=== PATIENT | male | born 1930 | race Caucasian/White ===

== ENCOUNTER → 2017-03-13 | Outpatient (CLI) | payer MEDICARE, OTHER ==
[2013-09-18 10:38] VITALS: BMI 27.9
[~2017-03-13] MED LIST: ACET-1966 PO; ASPI-1471 PO; ASPI-757 PO; ATOR20TA65 PO; ATR80PT PO; CALC-707 PO; CEPH500T7 PO; CLOP75TA43 PO; FESO8PT GT; FESO8PT PO; FLU60SYR30 IM ONLY; GABA-490 PO; GABA-549 PO; GLY5 PO; GUAI118L70 PO; ISOS30TA71 PO; LISI-347 PO; LISI-353 PO; LISI-362 PO; LISI20TA29 PO; LOPE-111 PO; LOR5/325 PO; MAG-65; MECL12.5 PO; METO25TA93 PO; METXR500 PO; MOM PO; ONDA4TAB PO; POLY17PO25 PO; SAXA1TBM PO
== END ==
LOC: AMB 13:32
PROVIDERS: ATTEND Nurse Practitioner
DX: R53.83 Other fatigue (principal); R53.81 Other malaise; G30.9 Alzheimer's disease, unspecified
CPT/HCPCS: A0425; A0427

== ENCOUNTER → 2017-05-07 | Outpatient (CLI) | payer MEDICARE, OTHER ==
[2013-09-18 10:38] VITALS: BMI 27.9
[~2017-05-07] MED LIST changes: +ATOR10TA65 PO; +SERT25TA90 PO
== END ==
LOC: ZZSPRING 01:41
PROVIDERS: ATTEND Family Medicine
DX: E55.9 Vitamin D deficiency, unspecified (principal); N28.9 Disorder of kidney and ureter, unspecified; E78.5 Hyperlipidemia, unspecified; E11.9 Type 2 diabetes mellitus without complications; F03.90 Unspecified dementia, unspecified severity, without behavioral disturbance, psychotic disturbance, mood disturbance, and anxiety
CPT/HCPCS: 36415; 82306; 82310; 82374; 82435; 82465; 82565; 82947; 83036; 83718; 84132; 84295; 84478; 84520

== ENCOUNTER 2017-06-06 12:33 | Observation (INO) | payer MEDICARE, OTHER ==
[2013-09-18 10:38] VITALS: Wt 80.7 kg
[~2017-06-06 12:33] MED LIST changes: -ACET500T68 PO; -DEXT1DRO15 OP; -LOPE-109 PO; -OSEL30CA PO
--- NOTE | 2017-06-06 13:17 | ER Report ---
History and Physical Time Seen By MD: 12:41 Hx. of Stated Complaint: nausea, vomiting at the grocery store HPI/ROS CHIEF COMPLAINT: Nausea, vomiting HISTORY OF PRESENT ILLNESS: 87-year-old patient presents to emergency room with complaint of nausea and vomiting. Patient states that he woke up this morning feeling well. He states that a friend took him to safely. While he was there he became sick to stomach and vomited. EMS was called and they came and got him and brought him to the emergency room. Patient states that he would like to go home. He states that he has no weakness. He states that he is feeling better since he vomited. Patient has not taken any medication for this. He denies having any chest pain or shortness of breath. REVIEW OF SYSTEMS: Respiratory: No cough, no dyspnea. Cardiovascular: No chest pain, no palpitations. Gastrointestinal: As noted above Musculoskeletal: No back pain. Allergies: Coded Allergies: strawberry (Verified Allergy, Mild, 06/06/17) Home Meds Active Scripts Sertraline Hcl (SERTRALINE HCL) 25 Mg Tablet, 1 TAB PO QDAY for 90 Days, #90 TAB 1 Refill Prov:HAROLDO DELUNA MD 06/05/17 Cholecalciferol (Vitamin D3) (VITAMIN D3) 1,000 Unit Tablet, 1 TAB PO DAILY for 90 Days, #90 TAB 4 Refills Prov:HAROLDO DELUNA MD 05/13/17 Atorvastatin Calcium (ATORVASTATIN CALCIUM) 10 Mg Tablet, 1 TAB PO QDAY for 90 Days, #90 TAB 4 Refills Prov:HAROLDO DELUNA MD 04/30/17 Lisinopril (LISINOPRIL) 10 Mg Tablet, 1 TAB PO QDAY for 30 Days, #30 TAB 4 Refills Prov:HAROLDO DELUNA MD 04/26/17 Isosorbide Dinitrate (ISOSORBIDE DINITRATE) 30 Mg Tablet, 1 TAB PO QDAY, #90 TAB 4 Refills Prov:SCOOBY LEAVITT APRN [employer] INSPECTOR-C 03/22/17 Metoprolol Tartrate (METOPROLOL TARTRATE) 25 Mg Tablet, 12.5 MG PO BID, #90 TAB 4 Refills Prov:SHERON EDDY MD 02/25/17 Clopidogrel Bisulfate (PLAVIX) 75 Mg Tablet, 1 TAB PO QDAY, #90 TAB 4 Refills Prov:SHERON EDDY MD 01/11/17 Reported Medications Acetaminophen (TYLENOL EXTRA STRENGTH) 500 Mg Tablet, 500 MG PO, TAB Take 2 tabs by mouith up to 4 times per day as needed for Dental pain. Do not exceed 4000 mg per day 06/06/17 Ondansetron (ZOFRAN ODT) 4 Mg Tab.rapdis, 4 MG PO tid prn, TAB.ZHOU 03/13/17 Aspirin (ASPIR 81) 81 Mg Tablet.dr, 1 TAB PO QDAY, TAB 03/08/17 Guaifenesin/Dextromethorphan (Robafen Dm Cgh-Chest Bossman Liq) 100 Mg-10 Mg/5 Ml Liquid, 5 ML PO Q4-6H Y for COUGH Not to exceed 4 doses in 24 hours 10/03/16 Polyethylene Glycol 3350 (MIRALAX) Unknown Strength Powd.pack, 17 GM PO QDAY, PKT 10/03/16 Mag Hydrox/Aluminum Hyd/Simeth (Maalox Advanced Suspension) Unknown Strength Oral.susp 10/03/16 Loperamide Hcl (LOPERAMIDE) 2 Mg Tablet, 2-4 MG PO PRN 2 tabs PO with first loose stool and additional tab with additional loose stool, not to exceed 8 doses in 24 hours 10/03/16 Aspirin (ASPIRIN) 325 Mg Tablet, 325 MG PO QDAY Y for chest pain, TAB 10/03/16 Calcium Carbonate (ANTACID) 300 Mg Tab.chew, 300 MG PO Q2H Y for HEARTBURN, TAB.CHEW 10/03/16 Acetaminophen (TYLENOL) 325 Mg Tablet, 1-2 TAB PO Q4H Y for FEVER/PAIN, TAB 10/03/16 Discontinued Reported Medications Dextran 70/Hypromellose (ARTIFICIAL TEARS) 1 Each Droperette, 1 EACH OP 06/06/17 Loperamide Hcl (ANTI-DIARRHEAL) 2 Mg Tablet, 2 MG PO 06/06/17 Past Medical/Surgical History Patient has a past medical history of neuropathy, AR, hypertension, diabetes, alcohol use, depression, cancer. Patient has a surgical history of appendectomy, prostatectomy. Reviewed Nurses Notes: Yes Hx Smoking: Yes Smoking Status: Never Smoker Exposure to Second Hand Smoke?: No Hx Substance Use Disorder: No Hx Alcohol Use: Yes ([employer]) Constitutional Vital Sign - Last 24 Hours 06/06/17 06/06/17 06/06/17 06/06/17 12:33 12:35 12:48 13:03 Temp 97.1 Pulse 77 78 80 78 Resp 14 20 24 B/P (MAP) 125/61 (82) 125/61 Pulse Ox 95 95 96 O2 Delivery Room Air 06/06/17 06/06/17 06/06/17 06/06/17 13:18 13:33 13:48 14:03 Pulse ??? 71 66 69 Resp 19 10 22 Pulse Ox 92 91 92 06/06/17 06/06/17 06/06/17 06/06/17 14:18 14:30 14:35 14:50 Pulse 73 69 69 70 Resp 10 23 20 7 Pulse Ox 92 93 93 93 06/06/17 06/06/17 06/06/17 06/06/17 14:59 15:19 15:34 15:57 Pulse 63 71 71 Resp 22 14 19 B/P (MAP) 154/121 (132) Pulse Ox 92 94 95 06/06/17 06/06/17 06/06/17 06/06/17 16:00 16:04 16:24 16:30 Pulse 70 72 Resp 16 25 B/P (MAP) 153/77 (102) 127/71 (89) Pulse Ox 91 95 06/06/17 16:39 Pulse 69 Resp 22 Pulse Ox 96 Physical Exam General Appearance: The patient is alert, has no immediate need for airway protection and no current signs of toxicity. ENT: Tympanic membranes are pearly-carter, auditory canals are patent, mucous membranes are moist. Respiratory: Chest is non tender, lungs are clear to auscultation. Cardiac: regular rate and rhythm Gastrointestinal: Abdomen is soft and non tender, no masses, bowel sounds normal. Musculoskeletal: Neck: Neck is supple and non tender. Extremities have full range of motion and are non tender. Skin: No rashes or lesions. Neuro: Patient is alert and oriented 3, he is able to follow instructions. Cranial nerves II through XII grossly intact, patient has good strength with both hands. DIFFERENTIAL DIAGNOSIS: After history and physical exam differential diagnosis was considered for gastroenteritis, pneumonia, urinary tract infection, stroke. Medical Decision Making Data Points Result Diagram: 06/06/17 1414 06/06/17 1414 Laboratory Hematology Test 06/06/17 00:00 06/06/17 13:02 06/06/17 14:14 Urine Color Yellow Urine Clarity Slightly-cloudy Urine pH 5.0 pH (4.8-9.5) Urine Specific [place] 1.025 Urine Protein Negative mg/dL (NEGATIVE) Urine Glucose (UA) Negative mg/dL (NEGATIVE) Urine Ketones Negative mg/dL (NEGATIVE) Urine Blood Negative (NEGATIVE) Urine Nitrite Negative (NEGATIVE) Urine Bilirubin Negative (NEGATIVE) Urine Urobilinogen 4.0 mg/dL (0.2-1.9) Urine Leukocyte Esterase Small (NEGATIVE) Urine RBC 1 /HPF (0-2/HPF) Urine WBC 14 /HPF (0-5/HPF) Urine Squamous Epithelial Cells Many /LPF (</=FEW) Urine Bacteria Few /HPF (NONE-FEW) Urine Hyaline Casts Few /LPF (NONE-FEW) Urine Mucus Few /HPF (NONE-FEW) Influenza Virus Type A (PCR) Negative (NEGATIVE) Influenza Virus Type B (PCR) Positive (NEGATIVE) Red Blood Count 5.04 M/uL (4.00-5.60) Mean Corpuscular Volume 89.0 fL (80.0-96.0) Mean Corpuscular Hemoglobin 29.9 pg (26.0-33.0) Mean Corpuscular Hemoglobin Concent 33.6 g/dL (32.0-36.0) Red Cell Distribution Width 14.4 % (11.5-14.5) Mean Platelet Volume 9.0 fL (7.2-11.1) Neutrophils (%) (Auto) 85.9 % (39.4-72.5) Lymphocytes (%) (Auto) 6.8 % (17.6-49.6) Monocytes (%) (Auto) 6.4 % (4.1-12.4) Eosinophils (%) (Auto) 0.5 % (0.4-6.7) Basophils (%) (Auto) 0.4 % (0.3-1.4) Nucleated RBC Relative Count (auto) 0.0 /100WBC Neutrophils # (Auto) 9.3 K/uL (2.0-7.4) Lymphocytes # (Auto) 0.7 K/uL (1.3-3.6) Monocytes # (Auto) 0.7 K/uL (0.3-1.0) Eosinophils # (Auto) 0.1 K/uL (0.0-0.5) Basophils # (Auto) 0.0 K/uL (0.0-0.1) Nucleated RBC Absolute Count (auto) 0.00 K/uL Sodium Level 143 mmol/L (137-145) Potassium Level 5.2 mmol/L (3.5-5.0) Chloride Level 109 mmol/L (98-107) Carbon Dioxide Level 23 mmol/L (22-30) Blood Urea Nitrogen 27 mg/dl (9-21) Creatinine 1.40 mg/dl (0.66-1.25) Glomerular Filtration Rate Calc 47.8 Random Glucose 125 mg/dl (75-110) Calcium Level 8.7 mg/dl (8.4-10.2) Total Bilirubin 1.2 mg/dl (0.2-1.3) Aspartate Amino Transf (AST/SGOT) 26 U/L (0-35) Alanine Aminotransferase (ALT/SGPT) 32 U/L (0-56) Alkaline Phosphatase 118 U/L (0-126) Troponin I < 0.012 ng/ml Total Protein 6.4 gm/dl (6.3-8.2) Albumin 3.5 g/dl (3.5-5.0) Chemistry Test 06/06/17 00:00 06/06/17 13:02 06/06/17 14:14 Urine Color Yellow Urine Clarity Slightly-cloudy Urine pH 5.0 pH (4.8-9.5) Urine Specific [place] 1.025 Urine Protein Negative mg/dL (NEGATIVE) Urine Glucose (UA) Negative mg/dL (NEGATIVE) Urine Ketones Negative mg/dL (NEGATIVE) Urine Blood Negative (NEGATIVE) Urine Nitrite Negative (NEGATIVE) Urine Bilirubin Negative (NEGATIVE) Urine Urobilinogen 4.0 mg/dL (0.2-1.9) Urine Leukocyte Esterase Small (NEGATIVE) Urine RBC 1 /HPF (0-2/HPF) Urine WBC 14 /HPF (0-5/HPF) Urine Squamous Epithelial Cells Many /LPF (</=FEW) Urine Bacteria Few /HPF (NONE-FEW) Urine Hyaline Casts Few /LPF (NONE-FEW) Urine Mucus Few /HPF (NONE-FEW) Influenza Virus Type A (PCR) Negative (NEGATIVE) Influenza Virus Type B (PCR) Positive (NEGATIVE) White Blood Count 10.8 k/uL (4.5-11.0) Red Blood Count 5.04 M/uL (4.00-5.60) Hemoglobin 15.1 g/dL (14.0-18.0) Hematocrit 44.9 % (42.0-52.0) Mean Corpuscular Volume 89.0 fL (80.0-96.0) Mean Corpuscular Hemoglobin 29.9 pg (26.0-33.0) Mean Corpuscular Hemoglobin Concent 33.6 g/dL (32.0-36.0) Red Cell Distribution Width 14.4 % (11.5-14.5) Platelet Count 156 K/uL (150-450) Mean Platelet Volume 9.0 fL (7.2-11.1) Neutrophils (%) (Auto) 85.9 % (39.4-72.5) Lymphocytes (%) (Auto) 6.8 % (17.6-49.6) Monocytes (%) (Auto) 6.4 % (4.1-12.4) Eosinophils (%) (Auto) 0.5 % (0.4-6.7) Basophils (%) (Auto) 0.4 % (0.3-1.4) Nucleated RBC Relative Count (auto) 0.0 /100WBC Neutrophils # (Auto) 9.3 K/uL (2.0-7.4) Lymphocytes # (Auto) 0.7 K/uL (1.3-3.6) Monocytes # (Auto) 0.7 K/uL (0.3-1.0) Eosinophils # (Auto) 0.1 K/uL (0.0-0.5) Basophils # (Auto) 0.0 K/uL (0.0-0.1) Nucleated RBC Absolute Count (auto) 0.00 K/uL Glomerular Filtration Rate Calc 47.8 Calcium Level 8.7 mg/dl (8.4-10.2) Total Bilirubin 1.2 mg/dl (0.2-1.3) Aspartate Amino Transf (AST/SGOT) 26 U/L (0-35) Alanine Aminotransferase (ALT/SGPT) 32 U/L (0-56) Alkaline Phosphatase 118 U/L (0-126) Troponin I < 0.012 ng/ml Total Protein 6.4 gm/dl (6.3-8.2) Albumin 3.5 g/dl (3.5-5.0) Urinalysis Test 06/06/17 00:00 Urine Color Yellow Urine Clarity Slightly-cloudy Urine pH 5.0 pH (4.8-9.5) Urine Specific [place] 1.025 Urine Protein Negative mg/dL (NEGATIVE) Urine Glucose (UA) Negative mg/dL (NEGATIVE) Urine Ketones Negative mg/dL (NEGATIVE) Urine Blood Negative (NEGATIVE) Urine Nitrite Negative (NEGATIVE) Urine Bilirubin Negative (NEGATIVE) Urine Urobilinogen 4.0 mg/dL (0.2-1.9) Urine Leukocyte Esterase Small (NEGATIVE) Urine RBC 1 /HPF (0-2/HPF) Urine WBC 14 /HPF (0-5/HPF) Urine Squamous Epithelial Cells Many /LPF (</=FEW) Urine Bacteria Few /HPF (NONE-FEW) Urine Hyaline Casts Few /LPF (NONE-FEW) Urine Mucus Few /HPF (NONE-FEW) EKG/Imaging EKG Interpretation 12 lead EKG: Rhythm: normal sinus rhythm [place]: Left axis deviation QRS: normal ST segments: normal Imaging Exam type: CHEST PA AND LAT History: Nausea vomiting and unsteadiness Comparison: September 17, 2013. Findings: There is no evidence of acute effusions, infiltrates or edema. The cardiac silhouette is normal in size. There moderate spondylotic changes of the thoracic spine and moderate degenerative changes at the left shoulder joint IMPRESSION: 1. No acute cardiopulmonary process is seen Report Dictated By: Cindy Rich MD at 06/06/2017 1:33 PM Report E-Signed By: Cindy Rich MD at 06/06/2017 1:34 PM ED Course/Re-evaluation ED Course Patient was admitted to exam room, history and physical were obtained. Differential diagnoses were considered. On examination lungs are clear, heart was regular. Patient asked initial interview if he was able to home. Due to his age and illness I want to do a thorough workup as well as her family was okay then patient could be discharged home at that time. Patient agreed to that. A CBC, CMP, EKG, troponin, chest x-ray, CT scan of the head was done. The CBC and CMP were unremarkable, troponin was negative, EKG showed a normal sinus rhythm. CT scan of the head showed age-related changes. Influenza screen was done which was positive for influenza B. I discussed findings with the patient. I asked him how he felt about going home. Patient stated he would prefer to be admitted and stay here in the hospital. I discussed the case with Dr. Hooks, hospitalist. He did come down into the emergency room and evaluated the patient. He did agree to accept the patient for admission with diagnosis of influenza B. Decision to Disposition Date: Jun 06, 2017 Decision to Disposition Time: 16:56 Depart Departure Latest Vital Signs Vital Signs Date Time Temp Pulse Resp B/P (MAP) Pulse Ox O2 Delivery O2 Flow Rate FiO2 06/06/17 16:39 69 22 96 06/06/17 16:30 127/71 (89) 06/06/17 12:35 97.1 Room Air Impression: Primary Impression: Influenza B Condition: Condition Unchanged Disposition: Admitted from ER Referrals: HAROLDO DELUNA MD (PCP) LILI ORTEGA Jun 06, 2017 13:17
--- NOTE | 2017-06-06 13:39 | RADIOLOGY IMAGING REPORT ---
FACILITY: [facility] - [place] PATIENT NAME: Duy Woo : 1930 MR: [id number] V: [id number] EXAM DATE: [id number] ORDERING PHYSICIAN: LILI ORTEGA TECHNOLOGIST: Location: [facility] Patient: Duy Woo : 1930 Visit/Account:[id number] Date of Sevice: 06/06/2017 Exam type: CHEST PA AND LAT History: Nausea vomiting and unsteadiness Comparison: September 17, 2013. Findings: There is no evidence of acute effusions, infiltrates or edema. The cardiac silhouette is normal in s ize. There moderate spondylotic changes of the thoracic spine and moderate degenerative changes at t he left shoulder joint IMPRESSION: 1. No acute cardiopulmonary process is seen Report Dictated By: Cindy Rich MD at 06/06/2017 1:33 PM Report E-Signed By: Cindy Rich MD at 06/06/2017 1:34 PM WSN:[email or web address]
--- NOTE | 2017-06-06 14:01 | EKG ---
FACILITY: [facility] - [place] PATIENT NAME: MYLENE ALLEN : [id number] MR: [id number] V: [id number] EXAM DATE: ORDERING PHYSICIAN: LILI ORTEGA TECHNOLOGIST: FRANCE Prakash Reason : SICK TO STOMACH Blood Pressure : / mmHG Vent. Rate : 076 BPM Atrial Rate : 076 BPM P-R Int : 178 ms QRS Dur : 114 ms QT Int : 432 ms P-R-T Axes : 030 -30 046 degrees QTc Int : 486 ms Normal sinus rhythm Left axis deviation Minimal voltage criteria for LVH, may be normal variant Prolonged QT Poor R wave progression consistent with an old ant/sep [place] vs lead placement When compared with ECG of 13-MAR-2017 14:09, No significant change was found Confirmed by FROYLAN GALICIA ([id number]) on 06/06/2017 5:57:08 PM Referred By: LILI Confirmed By:FROYLAN GALICIA
--- NOTE | 2017-06-06 14:03 | RADIOLOGY IMAGING REPORT ---
FACILITY: [facility] PATIENT NAME: Duy Woo : 1930 MR: [id number] V: [id number] EXAM DATE: [id number] ORDERING PHYSICIAN: LILI ORTEGA TECHNOLOGIST: Location: [facility] [place] Patient: Duy Woo : 1930 Visit/Account:[id number] Date of Sevice: 06/06/2017 EXAMINATION: Head CT without intravenous contrast HISTORY: Confusion TECHNIQUE: Contiguous axial images were obtained from the skull base to the vertex without intraven ous contrast. Sagittal and coronal reformatted images are also submitted. Dose Lowering Technique One of the following dose optimization techniques was utilized in the performance of this exam: Autom ated exposure control; adjustment of the mA and/or kV according to the patient's size; or use of an i terative reconstruction technique. Specific details can be referenced in the facility's radiology C T exam operational policy. COMPARISON: March 13, 2017 FINDINGS: Brain volume: There is moderate diffuse central cortical atrophy present although not out of proport ion for patient's stated age Ventricles: As above Acute ischemic changes: None. Hemorrhage: None. Masses / edema: None. Julio-white: Negative. White matter: Patchy hypodensities in the periventricular white matter bilaterally Vessels: Vascular calcifications in the vertebral arteries and carotid siphons Extra-axial: Negative. Calvarium / scalp: Negative. Skull base / visualized face: Negative. Visualized sinuses / orbits: Mild mucosal thickening in the right maxillary sinus IMPRESSION: Moderate nonspecific white matter disease suspicious for chronic small vessel ischemia. If an acute infarct is of strong clinical concern MRI may be helpful Vascular calcifications in the vertebral arteries and carotid siphons Mild mucosal thickening in the right maxillary sinus Report Dictated By: Cindy Rich MD at 06/06/2017 1:54 PM Report E-Signed By: Cindy Rich MD at 06/06/2017 1:59 PM WSN:[email or web address]
[2017-06-06 14:28] LABS: PLATELET COUNT, AUTOMATED 156 K/uL (150-450)
[2017-06-06] MEDS ORDERED: ONDANSETRON 4 MG/2 ML VIAL ONE (15:42)
[2017-06-06] MEDS ORDERED: OSELTAMIVIR PHOS 30 MG CAP PO ONE (17:35)
[2017-06-06] MEDS ORDERED: ONDANSETRON 4 MG/2 ML VIAL IVP PRN ×2 (17:35→17:45)
[2017-06-06] MEDS ORDERED: PROMETHAZINE 25 MG/ML 1 ML AMP IVP PRN (17:45)
[2017-06-06 17:57] VITALS: BP 157/90
[2017-06-06] MEDS: NS(*) 0.9% 1000 ML BAG 1,000 ML IV PRN (18:03)
--- NOTE | 2017-06-06 18:10 | History & Physical ---
History of Present Illness History of Present Illness 87yo male with a h/o CAD who came to the ER for vomiting and weakness. He was in his normal state of health yesterday. This morning he felt a bit weak. He went to the store with a friend. He vomited there and felt very weak. EMS brought him to the ER. He denies any fevers, diarrhea. He doesn't report SOB or CP. His friend who is with him denies any changes in the patient's baseline mental status. In the ER, he received Zofran after a vomiting event. History Problems: (1) CAD (coronary artery disease) Status: Chronic (2) HTN (hypertension) Status: Chronic (3) Depression Status: Chronic Home Meds Active Scripts Sertraline Hcl (SERTRALINE HCL) 25 Mg Tablet, 1 TAB PO QDAY for 90 Days, #90 TAB 1 Refill Prov:HAROLDO DELUNA MD 06/05/17 Cholecalciferol (Vitamin D3) (VITAMIN D3) 1,000 Unit Tablet, 1 TAB PO DAILY for 90 Days, #90 TAB 4 Refills Prov:HAROLDO DELUNA MD 05/13/17 Atorvastatin Calcium (ATORVASTATIN CALCIUM) 10 Mg Tablet, 1 TAB PO QDAY for 90 Days, #90 TAB 4 Refills Prov:HAROLDO DELUNA MD 04/30/17 Lisinopril (LISINOPRIL) 10 Mg Tablet, 1 TAB PO QDAY for 30 Days, #30 TAB 4 Refills Prov:HAROLDO DELUNA MD 04/26/17 Isosorbide Dinitrate (ISOSORBIDE DINITRATE) 30 Mg Tablet, 1 TAB PO QDAY, #90 TAB 4 Refills Prov:SCOOBY LEAVITT APRN [employer]-C 03/22/17 Metoprolol Tartrate (METOPROLOL TARTRATE) 25 Mg Tablet, 12.5 MG PO BID, #90 TAB 4 Refills Prov:SHERON EDDY MD 02/25/17 Clopidogrel Bisulfate (PLAVIX) 75 Mg Tablet, 1 TAB PO QDAY, #90 TAB 4 Refills Prov:SHERON EDDY MD 01/11/17 Reported Medications Ondansetron (ZOFRAN ODT) 4 Mg Tab.rapdis, 4 MG PO tid prn, TAB.ZHOU 03/13/17 Aspirin (ASPIR 81) 81 Mg Tablet.dr, 1 TAB PO QDAY, TAB 03/08/17 Guaifenesin/Dextromethorphan (Robafen Dm Cgh-Chest Bossman Liq) 100 Mg-10 Mg/5 Ml Liquid, 5 ML PO Q4-6H Y for COUGH Not to exceed 4 doses in 24 hours 10/03/16 Polyethylene Glycol 3350 (MIRALAX) Unknown Strength Powd.pack, PO QDAY, PKT 10/03/16 Mag Hydrox/Aluminum Hyd/Simeth (Maalox Advanced Suspension) Unknown Strength Oral.susp 10/03/16 Loperamide Hcl (LOPERAMIDE) 2 Mg Tablet, 2-4 MG PO PRN 2 tabs PO with first loose stool and additional tab with additional loose stool, not to exceed 8 doses in 24 hours 10/03/16 Aspirin (ASPIRIN) 325 Mg Tablet, 325 MG PO QDAY Y for chest pain, TAB 10/03/16 Calcium Carbonate (ANTACID) 300 Mg Tab.chew, 300 MG PO Q2H Y for HEARTBURN, TAB.CHEW 10/03/16 Acetaminophen (TYLENOL) 325 Mg Tablet, 1-2 TAB PO Q4H Y for FEVER/PAIN, TAB 10/03/16 Allergies: Coded Allergies: strawberry (Verified Allergy, Mild, 06/06/17) Hx Smoking: Yes Smoking Status: Never Smoker Exposure to Second Hand Smoke?: No Caffeine Intake: Coffee, Tea Caffeine/Cups Per Day: 4-5 Hx Alcohol Use: Yes ([employer]) Hx Substance Use Disorder: No Review of Systems All Systems Reviewed/Normal: Yes, Except as Noted Exam Vital Signs Vital Signs Date Time Temp Pulse Resp B/P (MAP) Pulse Ox O2 Delivery O2 Flow Rate FiO2 06/06/17 17:09 70 20 96 06/06/17 17:00 126/68 (87) 06/06/17 12:35 97.1 Room Air General Appearance: Alert, Awake, No Acute Distress (pale and tired appearing) Neuro: No Gross deficits (Knows where he is and the events of the day. Equal strength bilaterally in UE and LE) Eyes: PERRLA ENT: Moist Mucous Membranes Cardiovascular: Regular Rate and Rhythm Respiratory: Clear to Auscultation GI: Abd Soft and Non-Tender Extremities: No Edema Integumentary: No Jaundice, No Cyanosis Medical Decision Making Data Points Result Diagram: 06/06/17 1414 06/06/17 1414 Item Value Date Time Creatinine 1.20 mg/dl 02/05/17 0810 Creatinine 1.60 mg/dl H 03/13/17 1400 Creatinine 1.20 mg/dl 05/07/17 0830 Creatinine 1.40 mg/dl H 06/06/17 1414 Potassium Level 5.2 mmol/L H 06/06/17 1414 Total Bilirubin 1.2 mg/dl 06/06/17 1414 Aspartate Amino Transf (AST/SGOT) 26 U/L 06/06/17 1414 Alanine Aminotransferase (ALT/SGPT) 32 U/L 06/06/17 1414 Alkaline Phosphatase 118 U/L 06/06/17 1414 Troponin I < 0.012 ng/ml 06/06/17 1414 Neutrophils (%) (Auto) 85.9 % H 06/06/17 1414 Urine RBC 1 /HPF 06/06/17 0000 Urine WBC 14 /HPF 06/06/17 0000 Urine Squamous Epithelial Cells Many /LPF H 06/06/17 0000 Urine Bacteria Few /HPF 06/06/17 0000 Urine Hyaline Casts Few /LPF 06/06/17 0000 Urine Mucus Few /HPF 06/06/17 0000 Influenza Virus Type A (PCR) Negative 06/06/17 1302 Influenza Virus Type B (PCR) Positive 06/06/17 1302 EKG / Imaging EKG Interpretation Vent. Rate : 076 BPM Atrial Rate : 076 BPM P-R Int : 178 ms QRS Dur : 114 ms QT Int : 432 ms P-R-T Axes : 030 -30 046 degrees QTc Int : 486 ms Normal sinus rhythm Left axis deviation Minimal voltage criteria for LVH, may be normal variant Prolonged QT Poor R wave progression consistent with an old ant/sep [place] vs lead placement When compared with ECG of 13-MAR-2017 14:09, No significant change was found Confirmed by FROYLAN GALICIA ([id number]) on 06/06/2017 5:57:08 PM Imaging CXR - 1. No acute cardiopulmonary process is seen Head CT - Moderate nonspecific white matter disease suspicious for chronic small vessel ischemia. If an acute infarct is of strong clinical concern MRI may be helpful Vascular calcifications in the vertebral arteries and carotid siphons Mild mucosal thickening in the right maxillary sinus Assessment and Plan Problems: (1) Vomiting Status: Acute Assessment & Plan: Secondary to Influenza. Will hydrate and treat with Phenergan as needed. QT too prolonged for Zofran. (2) Influenza B Status: Acute Assessment & Plan: Will treat with renal dosed Tamiflu and place in isolation. (3) CAD (coronary artery disease) Status: Chronic Assessment & Plan: Continue ASA, Plavix, metoprolol, Isosorbide and Lipitor as tolerated. (4) Depression Status: Chronic Assessment & Plan: Continue sertraline. (5) HTN (hypertension) Status: Chronic Assessment & Plan: Continue metoprolol, but will hold lisinopril because of the mild hyperkalemia. Copies to: HAROLDO DELUNA MD Venous Thromboembolism Antithrombotics Is Pt On Any Antithrombotics?: No Exam Sepsis Risk: No Definite Risk FROYLAN GALICIA MD Jun 06, 2017 18:10
[2017-06-06] MEDS ORDERED: DEXT1DRO15 OP (18:26)
[2017-06-06] MEDS ORDERED: LOPE-109 PO (18:26)
[2017-06-06] MEDS ORDERED: ACET500T68 PO (18:26)
[2017-06-06 19:57] VITALS: BP 159/63
[2017-06-06] MEDS ORDERED: EMS NS 0.9%(*) 1000 ML BAG 1,000 ML IV ONE (20:30)
[2017-06-06] MEDS: METOPROLOL TART 50 MG TAB PO SCH (21:32)
[2017-06-06] MEDS: ATORVASTATIN 10 MG TAB PO SCH (21:36)
[2017-06-07 01:23] VITALS: BP 140/80
[2017-06-07] MEDS: NS(*) 0.9% 1000 ML BAG 1,000 ML IV PRN (04:15)
[2017-06-07 05:56] LABS: PLATELET COUNT, AUTOMATED 123 K/uL (150-450)
[2017-06-07 08:04] VITALS: BP 153/73
[2017-06-07] MEDS: ENOXAPARIN 30 MG/0.3 ML SYR SC SCH (08:15)
[2017-06-07] MEDS: ASPIRIN 81 MG ENTERIC COATED PO SCH (08:15)
[2017-06-07] MEDS: METOPROLOL TART 50 MG TAB PO SCH ×2 (08:15→20:48)
[2017-06-07] MEDS: ISOSORBIDE MONONITR 30MG TABCR PO SCH (08:15)
[2017-06-07] MEDS: CLOPIDOGREL BISULFATE 75MG TAB PO SCH (08:15)
[2017-06-07] MEDS: OSELTAMIVIR PHOS 30 MG CAP PO SCH ×2 (08:15→20:48)
[2017-06-07] MEDS ORDERED: NS(*) 0.9% 1000 ML BAG 1,000 ML IV PRN (10:04)
[2017-06-07] MEDS: cefTRIAXone 1 GM VIAL IVP SCH (11:13)
--- NOTE | 2017-06-07 14:57 | Hospitalist Progress Note ---
Subjective Progress Notes Subjective He reports some minor improvements, but still feels rather poorly. Physical Exam Vital Signs Date Time Temp Pulse Resp B/P (MAP) Pulse Ox O2 Delivery O2 Flow Rate FiO2 06/07/17 08:09 96 Nasal Cannula 2.0 06/07/17 08:04 98.4 75 16 153/73 (99) Intake and Output 06/08/17 07:00 Intake Total 240 ml Balance 240 ml Intake Oral 240 ml # Voids 1 # Bowel Movements 2 Cardiovascular: Regular Rate and Rhythm Respiratory: Clear to Auscultation GI: Other (soft, but with some suprapubic discomfort with palpation) Extremities: Warm, Perfused Result Diagram: 06/07/17 0506/07/17 0525 Assessment and Plan Problems: (1) UTI (urinary tract infection) Status: Acute Assessment & Plan: Will place on IV Rocephin. 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 Urine culture pending. (2) Influenza B Status: Acute Assessment & Plan: He is on renal dosed Tamiflu, IV fluids. He has been placed in isolation. Watch closely. (3) Vomiting Status: Acute Assessment & Plan: Possibly due to Influenza, but also could be related to UTI. Will continue IV fluids and treat with Phenergan as needed. (4) CAD (coronary artery disease) Status: Chronic Assessment & Plan: Continue ASA, Plavix, metoprolol, Isosorbide and Lipitor as tolerated. (5) Depression Status: Chronic Assessment & Plan: Continue sertraline. (6) HTN (hypertension) Status: Chronic Assessment & Plan: Continue metoprolol, but will hold lisinopril because of the mild hyperkalemia. Exam Sepsis Risk: No Definite Risk BENI YARBROUGH MD Jun 07, 2017 14:57
[2017-06-07 15:06] VITALS: BP 149/81
[2017-06-07 19:44] VITALS: BP 150/70
[2017-06-07] MEDS: ATORVASTATIN 10 MG TAB PO SCH (20:48)
[2017-06-08 06:33] LABS: PLATELET COUNT, AUTOMATED 112 K/uL (150-450)
[2017-06-08 07:25] VITALS: BP 160/74
[2017-06-08] MEDS ORDERED: LOPERAMIDE HCL 2 MG CAP PO PRN (09:10)
[2017-06-08] MEDS: METOPROLOL TART 50 MG TAB PO SCH ×2 (09:11→21:49)
[2017-06-08] MEDS: OSELTAMIVIR PHOS 30 MG CAP PO SCH ×2 (09:11→21:49)
[2017-06-08] MEDS: CLOPIDOGREL BISULFATE 75MG TAB PO SCH (09:11)
[2017-06-08] MEDS: ENOXAPARIN 30 MG/0.3 ML SYR SC SCH (09:12)
[2017-06-08] MEDS: ASPIRIN 81 MG ENTERIC COATED PO SCH (09:12)
[2017-06-08] MEDS: ISOSORBIDE MONONITR 30MG TABCR PO SCH (09:12)
[2017-06-08 11:18] VITALS: BP 118/56
[2017-06-08] MEDS: cefTRIAXone 1 GM VIAL IVP SCH (11:27)
--- NOTE | 2017-06-08 13:39 | Hospitalist Progress Note ---
Subjective Progress Notes Subjective He is without complaints. Staff is concerns about his strength and some loose stools. Physical Exam Vital Signs Date Time Temp Pulse Resp B/P (MAP) Pulse Ox O2 Delivery O2 Flow Rate FiO2 06/08/17 11:33 95 Nasal Cannula 1.0 06/08/17 11:18 97.7 62 20 118/56 (76) Intake and Output 06/09/17 07:00 Intake Total 200 ml Balance 200 ml Intake Oral 200 ml # Voids 2 # Bowel Movements 1 General Appearance: Alert, Awake, No Acute Distress GI: Soft and Non-Tender Result Diagram: 06/08/1760006/08/17600 Assessment and Plan Problems: (1) Influenza B Status: Acute Assessment & Plan: He is on renal dosed Tamiflu. He has been placed in isolation. Watch closely. (2) UTI (urinary tract infection) Status: Acute Assessment & Plan: On IV Rocephin. Growing Citrobacter Koseri as with infections in the past. (3) Vomiting Status: Resolved Assessment & Plan: Possibly due to Influenza, but also could be related to UTI. Saline lock. Follow symptoms. He is a bit weak so will ask therapy to evaluate. (4) CAD (coronary artery disease) Status: Chronic Assessment & Plan: Continue ASA, Plavix, metoprolol, Isosorbide and Lipitor as tolerated. (5) Depression Status: Chronic Assessment & Plan: Continue sertraline. (6) HTN (hypertension) Status: Chronic Assessment & Plan: Continue metoprolol, but will hold lisinopril because of the mild hyperkalemia and elevated creatinine Exam Sepsis Risk: No Definite Risk FROYLAN GALICIA MD Jun 08, 2017 13:39
[2017-06-08 16:31] VITALS: BP 156/81
[2017-06-08 19:12] VITALS: BP 127/74
[2017-06-08 21:47] VITALS: BP 146/73
[2017-06-08] MEDS: ATORVASTATIN 10 MG TAB PO SCH (21:49)
[2017-06-09 05:29] VITALS: BP 136/75
[2017-06-09 08:12] VITALS: BP 158/86
[2017-06-09] MEDS ORDERED: INFLUENZA VIRUS VAC 0.5 ML SYR IM ONLY ONE (09:00)
[2017-06-09] MEDS: METOPROLOL TART 50 MG TAB PO SCH (09:59)
[2017-06-09] MEDS: ISOSORBIDE MONONITR 30MG TABCR PO SCH (09:59)
[2017-06-09] MEDS: ASPIRIN 81 MG ENTERIC COATED PO SCH (09:59)
[2017-06-09] MEDS: CLOPIDOGREL BISULFATE 75MG TAB PO SCH (09:59)
[2017-06-09] MEDS: ENOXAPARIN 30 MG/0.3 ML SYR SC SCH (10:00)
[2017-06-09] MEDS: OSELTAMIVIR PHOS 30 MG CAP PO SCH (10:00)
[2017-06-09] MEDS ORDERED: OSEL30CA PO (10:08)
--- NOTE | 2017-06-09 10:13 | Hospitalist Depart ---
Discharge Summary Reason for Hosp/Final Diag: (1) Influenza B Status: Acute Hospital Course & Plan: He did test positive for influenza B. We have started him on Tamiflu. (2) UTI (urinary tract infection) Status: Acute Hospital Course & Plan: He had a contaminated urine sample, but his urine culture grew Citrobacter. He will have received 3 doses of ceftriaxone prior to discharge. (3) Vomiting Status: Resolved Hospital Course & Plan: Secondary to influenza. It is now resolved. (4) CAD (coronary artery disease) Status: Chronic Hospital Course & Plan: He is on chronic treatment with aspirin, Plavix, metoprolol, Isosorbide and Lipitor as tolerated. (5) Depression Status: Chronic Hospital Course & Plan: He is on chronic treatment with sertraline. (6) HTN (hypertension) Status: Chronic Hospital Course & Plan: He is on chronic treatment with lisinopril. Departure Latest Vital Signs Vital Signs 06/09/17 06/09/17 05:29 08:12 Temp 97.7 Pulse 63 Resp 16 B/P (MAP) 158/86 (110) O2 Flow Rate 1.0 Weight (Pounds): 178 Result Diagram: 06/08/17 0606/08/17 06 Condition: Improved Discharge: Home Health, Assisted Living PT/OT Follow Up For: PT Evaluation and Treat Discharge Instructions Home Meds Active Scripts Oseltamivir Phosphate (Oseltamivir Phosphate) 30 Mg Capsule, 30 MG PO BID, #10 CAPSULE Prov:OSKAR SOOD DO 06/09/17 Sertraline Hcl (SERTRALINE HCL) 25 Mg Tablet, 1 TAB PO QDAY for 90 Days, #90 TAB 1 Refill Prov:HAROLDO DELUNA MD 06/05/17 Cholecalciferol (Vitamin D3) (VITAMIN D3) 1,000 Unit Tablet, 1 TAB PO DAILY for 90 Days, #90 TAB 4 Refills Prov:HAROLDO DELUNA MD 05/13/17 Atorvastatin Calcium (ATORVASTATIN CALCIUM) 10 Mg Tablet, 1 TAB PO QDAY for 90 Days, #90 TAB 4 Refills Prov:HAROLDO DELUNA MD 04/30/17 Lisinopril (LISINOPRIL) 10 Mg Tablet, 1 TAB PO QDAY for 30 Days, #30 TAB 4 Refills Prov:HAROLDO DELUNA MD 2/2/18 Isosorbide Dinitrate (ISOSORBIDE DINITRATE) 30 Mg Tablet, 1 TAB PO QDAY, #90 TAB 4 Refills Prov:SCOOBY LEAVITT APRN MRI TECH-C 03/22/17 Metoprolol Tartrate (METOPROLOL TARTRATE) 25 Mg Tablet, 12.5 MG PO BID, #90 TAB 4 Refills Prov:SHERON EDDY MD 02/25/17 Clopidogrel Bisulfate (PLAVIX) 75 Mg Tablet, 1 TAB PO QDAY, #90 TAB 4 Refills Prov:SHERON EDDY MD 01/11/17 Reported Medications Aspirin (ASPIR 81) 81 Mg Tablet.dr, 1 TAB PO QDAY, TAB 03/08/17 Polyethylene Glycol 3350 (MIRALAX) Unknown Strength Powd.pack, 17 GM PO QDAY, PKT 10/03/16 Discontinued Reported Medications Acetaminophen (TYLENOL EXTRA STRENGTH) 500 Mg Tablet, 500 MG PO, TAB Take 2 tabs by mouith up to 4 times per day as needed for Dental pain. Do not exceed 4000 mg per day 06/06/17 Ondansetron (ZOFRAN ODT) 4 Mg Tab.rapdis, 4 MG PO tid prn, TAB.ZHOU 03/13/17 Guaifenesin/Dextromethorphan (Robafen Dm Cgh-Chest Bossman Liq) 100 Mg-10 Mg/5 Ml Liquid, 5 ML PO Q4-6H Y for COUGH Not to exceed 4 doses in 24 hours 10/03/16 Mag Hydrox/Aluminum Hyd/Simeth (Maalox Advanced Suspension) Unknown Strength Oral.susp 10/03/16 Loperamide Hcl (LOPERAMIDE) 2 Mg Tablet, 2-4 MG PO PRN 2 tabs PO with first loose stool and additional tab with additional loose stool, not to exceed 8 doses in 24 hours 10/03/16 Aspirin (ASPIRIN) 325 Mg Tablet, 325 MG PO QDAY Y for chest pain, TAB 10/03/16 Calcium Carbonate (ANTACID) 300 Mg Tab.chew, 300 MG PO Q2H Y for HEARTBURN, TAB.CHEW 10/03/16 Acetaminophen (TYLENOL) 325 Mg Tablet, 1-2 TAB PO Q4H Y for FEVER/PAIN, TAB 10/03/16 Dextran 70/Hypromellose (ARTIFICIAL TEARS) 1 Each Droperette, 1 EACH OP 06/06/17 Loperamide Hcl (ANTI-DIARRHEAL) 2 Mg Tablet, 2 MG PO 06/06/17 Diet: Regular Activity: As Tolerated Copies to: HAROLDO DELUNA MD Venous Thromboembolism Antithrombotics Is Pt On Any Antithrombotics?: No [id number] Certification Face to Face Home Health Certification Institutional Provider conducted the [id number] encounter. Electronic Undersigning Physician Certifies Home Health. I certify that the patient has been under my care and that I had a [id number] encounter that meets the physician [id number] encounter requirements with this patient. This patient is home-bound due to safety issues and continues to require assistance with ADL's. I certify that based on my findings, that Nursing, Aides and the following Home Health services are medically necessary: Medical Necessity: Rehab Date Face to Face Conducted: Jun 09, 2017 Problem Qualifiers (1) HTN (hypertension): Hypertension type: essential hypertension Qualified Codes: I10 - Essential ( primary) hypertension OSKAR SOOD DO Jun 09, 2017 10:13
[2017-06-09] MEDS: cefTRIAXone 1 GM VIAL IVP SCH (11:17)
== END 2017-06-09 10:08 | disposition home or self-care (01) ==
LOC: ER 12:39 → MED 16:58 → UNDOADMOB 16:58 → MED 16:58 → INTOOBSV 16:58
PROVIDERS: ADMIT Internal Medicine; ATTEND Internal Medicine
DX: J11.1 Influenza due to unidentified influenza virus with other respiratory manifestations (principal); I25.10 Atherosclerotic heart disease of native coronary artery without angina pectoris; I10 Essential (primary) hypertension; F32.9 Major depressive disorder, single episode, unspecified; N39.0 Urinary tract infection, site not specified; R41.0 Disorientation, unspecified
CPT/HCPCS: 36415; 70450; 71046; 81001; 84484; 85025; 87077; 87088; 87186; 87502; 93005; 96361; 96374; 97116; 97161; 99285; A9270; G0378; J0696; J1650; J2405; J7030; 82040; 82247; 82310; 82374; 82435; 82565; 82947; 84075; 84132; 84155; 84295; 84450; 84460; 84520

== ENCOUNTER → 2017-06-06 | Outpatient (CLI) | payer MEDICARE, OTHER ==
[2013-09-18 10:38] VITALS: BMI 27.9
[~2017-06-06] MED LIST changes: +ACET500T68 PO; +CHOL10005 PO; +DEXT1DRO15 OP; +LOPE-109 PO; +OSEL30CA PO
== END ==
LOC: AMB 11:58
PROVIDERS: ATTEND Nurse Practitioner
DX: R11.2 Nausea with vomiting, unspecified (principal); I95.9 Hypotension, unspecified; R94.31 Abnormal electrocardiogram [ECG] [EKG]
CPT/HCPCS: A0425; A0427

== ENCOUNTER → 2017-12-10 | Outpatient (CLI) | payer MEDICARE, OTHER ==
[2013-09-18 10:38] VITALS: BMI 27.9
[~2017-12-10] MED LIST changes: +ACET500T68 PO; +CARB-340 OT; +CHOL200074 PO; +DEXT1DRO15 OP; +LOPE-109 PO; +NITR0.4T3 SL; +OSEL30CA PO
== END ==
LOC: ZZSPRING 05:50
PROVIDERS: ATTEND Family Medicine
DX: E55.9 Vitamin D deficiency, unspecified (principal); I25.10 Atherosclerotic heart disease of native coronary artery without angina pectoris; I10 Essential (primary) hypertension
CPT/HCPCS: 36415; 82040; 82247; 82306; 82310; 82374; 82435; 82565; 82947; 84075; 84132; 84155; 84295; 84450; 84460; 84520; 85027

== ENCOUNTER → 2018-03-03 | Outpatient (CLI) | payer OTHER ==
[2013-09-18 10:38] VITALS: BMI 27.9
[~2018-03-03] MED LIST changes: +HYDR-653 PO
[2018-03-03 11:38] LABS: PLATELET COUNT, AUTOMATED 171 K/uL (150-450)
== END ==
LOC: LAB 11:20
PROVIDERS: ATTEND Family Medicine
DX: R53.83 Other fatigue (principal)
CPT/HCPCS: 82040; 82247; 82310; 82374; 82435; 82565; 82947; 84075; 84132; 84155; 84295; 84443; 84450; 84460; 84520; 85025

== ENCOUNTER → 2018-08-05 | Outpatient (CLI) | payer MEDICARE, OTHER ==
[2013-09-18 10:38] VITALS: BMI 27.9
== END ==
LOC: ZZSPRING 01:33
PROVIDERS: ATTEND Family Medicine
DX: I10 Essential (primary) hypertension (principal)
CPT/HCPCS: 36415; 82310; 82374; 82435; 82565; 82947; 84132; 84295; 84520; 85027

== ENCOUNTER 2018-09-25 03:39 | Inpatient (IN) | payer MEDICARE, OTHER ==
[2013-09-18 10:38] VITALS: Ht 180.3 cm; Wt 84.8 kg
[2018-09-25] VITALS (9 sets, daily range): BP systolic 92–133; BP diastolic 46–94
[~2018-09-25] VITALS: Ht 180.3 cm; Wt 84.8 kg
[~2018-09-25 03:39] MED LIST changes: -AMOX500T10 PO; -[UNRECOGNIZED DRUG - CODE] PO
[2018-09-25] MEDS ORDERED: ONDANSETRON 4 MG ODT TABDP SL ONE ×2 (03:40→03:45)
[2018-09-25] MEDS ORDERED: NS(*) 0.9% 1000 ML BAG 1,000 ML IV ONE ×2 (03:45→05:20)
[2018-09-25] MEDS ORDERED: DIPHTH/TETANUS/ACEL. PERTUSSIS IM ONE (03:45)
--- NOTE | 2018-09-25 03:53 | ER Report ---
History and Physical Time Seen By MD: 03:51 HPI/ROS CHIEF COMPLAINT: Fall, altered mental status HISTORY OF PRESENT ILLNESS: Patient is an 88-year-old male here with complaints of altered mental status, status post fall at [facility]. Patient was last seen normal at approximately 1:00 this morning but was found adjacent to his bedside with glass on the floor with scattered superficial abrasions, confused, slow to respond with suspected fall and hitting head. Patient's baseline is alert and oriented, well-functioning, able to complete ADLs. Patient's primary language is Pakistani and he is fluent in Cypriot as well. Patient is able to answer limited questions at this time. REVIEW OF SYSTEMS: Unable to complete due to patient mental status Allergies: Coded Allergies: strawberry (Verified Allergy, Mild, 06/06/17) Home Meds Active Scripts Lisinopril (LISINOPRIL) 10 Mg Tablet, 0.5 TAB PO QDAY, #90 TAB 4 Refills Prov:HAROLDO DELUNA MD 03/03/18 Atorvastatin Calcium (ATORVASTATIN CALCIUM) 10 Mg Tablet, 1 TAB PO QODAY for 90 Days, #45 TAB 4 Refills Prov:HAROLDO DELUNA MD 01/22/18 Nitroglycerin (NITROGLYCERIN) 0.4 Mg Tab.subl, 0.4 MG SL Q5MIN PRN for chest pain for 90 Days, #10 TAB Prov:HAROLDO DELUNA MD 09/03/17 Cholecalciferol (Vitamin D3) (VITAMIN D-3) 2,000 Unit Capsule, 2000 UNIT PO QDAY for 90 Days, #90 CAPSULE 4 Refills Prov:HAROLDO DELUNA MD 09/03/17 Reported Medications Sertraline Hcl (SERTRALINE HCL) 25 Mg Tablet, 1 TAB PO QHS, TAB 09/25/18 Calcium Carbonate (ANTACID) 300 Mg Tab.chew, 750 MG PO Q2H PRN for HEARTBURN, TAB.CHEW 09/25/18 Dextran 70/Hypromellose (ARTIFICIAL TEARS) 1 Each Droperette, 1 GTT OP PRN 05/21/18 Acetaminophen (TYLENOL) 325 Mg Tablet, 1-2 TAB PO Q4H PRN for PAIN/TEMP OVER 100.4, TAB 03/03/18 Aspirin (ASPIR 81) 81 Mg Tablet.dr, 1 TAB PO QDAY, TAB 03/08/17 Polyethylene Glycol 3350 (MIRALAX) Unknown Strength Powd.pack, 17 GM PO QDAY, PKT 10/03/16 Discontinued Scripts Sertraline Hcl (SERTRALINE HCL) 25 Mg Tablet, 1 TAB PO QDAY for 90 Days, #90 TAB 4 Refills Prov:HAROLDO DELUNA MD 10/28/17 Hx Smoking: Yes Smoking Status: Never Smoker Exposure to Second Hand Smoke?: No Hx Substance Use Disorder: No Hx Alcohol Use: Yes ([employer]) Constitutional Vital Sign - Last 24 Hours 09/25/18 09/25/18 09/25/18 09/25/18 03:40 03:54 04:24 04:39 Temp 101.1 Pulse 126 117 111 125 Resp 24 B/P (MAP) 136/82 Pulse Ox 88 87 90 93 09/25/18 09/25/18 09/25/18 09/25/18 04:50 04:54 05:00 05:05 Pulse 107 102 Resp 30 29 B/P (MAP) 147/72 (97) Pulse Ox 95 94 O2 Flow Rate 2.0 09/25/18 09/25/18 09/25/18 05:20 05:30 06:05 Pulse 105 114 Resp 27 24 B/P (MAP) 116/63 (80) Pulse Ox 92 92 Intake and Output 09/24/18 09/24/18 09/25/18 15:02 23:02 07:02 Intake Total 1100 ml Output Total 200 ml Balance 900 ml Physical Exam General Appearance: Patient is slow to respond, able to answer limited questioning, mildly agitated Eyes: Pupils equal and round no pallor or injection. ENT, Mouth: Mucous membranes are moist. Respiratory: There are no retractions, lungs are clear to auscultation. Cardiovascular: Regular rate and rhythm. Gastrointestinal: Abdomen is soft and non tender, no masses, bowel sounds normal. Neurological: No focal neurological deficits on examination Skin: Warm and dry, no rashes.+ Scattered abrasions to distal lower extremities Musculoskeletal: Neck is supple non tender. Extremities are nontender, nonswollen and have full range of motion. DIFFERENTIAL DIAGNOSIS: After history and physical exam differential diagnosis was considered for altered mental status including but not limited to hypoglycemia, infectious process, electrolyte abnormality, head injury and intoxicants. Medical Decision Making Data Points Result Diagram: 09/25/18 0352 09/25/18 0352 Laboratory Hematology Test 09/25/18 03:52 09/25/18 05:34 09/25/18 06:00 Red Blood Count 4.93 M/uL (4.00-5.60) Mean Corpuscular Volume 88.2 fL (80.0-96.0) Mean Corpuscular Hemoglobin 29.9 pg (26.0-33.0) Mean Corpuscular Hemoglobin Concent 33.9 g/dL (32.0-36.0) Red Cell Distribution Width 14.4 % (11.5-14.5) Mean Platelet Volume 8.8 fL (7.2-11.1) Neutrophils (%) (Auto) 93.1 % (39.4-72.5) Lymphocytes (%) (Auto) 4.3 % (17.6-49.6) Monocytes (%) (Auto) 2.1 % (4.1-12.4) Eosinophils (%) (Auto) 0.2 % (0.4-6.7) Basophils (%) (Auto) 0.3 % (0.3-1.4) Nucleated RBC Relative Count (auto) 0.1 /100WBC Neutrophils # (Auto) 13.0 K/uL (2.0-7.4) Lymphocytes # (Auto) 0.6 K/uL (1.3-3.6) Monocytes # (Auto) 0.3 K/uL (0.3-1.0) Eosinophils # (Auto) 0.0 K/uL (0.0-0.5) Basophils # (Auto) 0.0 K/uL (0.0-0.1) Nucleated RBC Absolute Count (auto) 0.02 K/uL Prothrombin Time 14.5 seconds (12.0-14.4) Prothromb Time International Ratio 1.12 Activated Partial Thromboplast Time 26 seconds (23-35) Blood Gas Patient Temperature 101.1 DEGREES Venous Blood pH 7.33 (7.31-7.41) Venous Blood Partial Pressure CO2 32 mmHg Venous Blood Partial Pressure O2 38 mmHg Venous Blood HCO3 16 mmol/L Venous Blood Oxygen Saturation 65 % Venous Blood Base Excess -9 mmol/L Oxygen Liters/Minute 88% on ra Sodium Level 141 mmol/L (137-145) Potassium Level 4.3 mmol/L (3.5-5.0) Chloride Level 107 mmol/L (98-107) Carbon Dioxide Level 18 mmol/L (22-30) Blood Urea Nitrogen 25 mg/dl (9-21) Creatinine 1.30 mg/dl (0.66-1.25) Glomerular Filtration Rate Calc 52.0 Random Glucose 195 mg/dl (75-110) Calcium Level 9.1 mg/dl (8.4-10.2) Total Bilirubin 1.2 mg/dl (0.2-1.3) Aspartate Amino Transf (AST/SGOT) 22 U/L (0-35) Alanine Aminotransferase (ALT/SGPT) 22 U/L (0-56) Alkaline Phosphatase 147 U/L (0-126) Total Creatine Kinase 110 U/L (55-170) Total Protein 6.6 g/dl (6.3-8.2) Albumin 3.8 g/dl (3.5-5.0) Lipase 85 U/L (23-300) Urine Color Straw Urine Clarity Clear Urine pH 5.0 pH (4.8-9.5) Urine Specific Anselmo 1.031 Urine Protein Negative mg/dL (NEGATIVE) Urine Glucose (UA) Negative mg/dL (NEGATIVE) Urine Ketones Negative mg/dL (NEGATIVE) Urine Blood Small (NEGATIVE) Urine Nitrite Negative (NEGATIVE) Urine Bilirubin Negative (NEGATIVE) Urine Urobilinogen Negative mg/dL (0.2-1.9) Urine Leukocyte Esterase Negative (NEGATIVE) Urine RBC 1 /HPF (0-2/HPF) Urine WBC <1 /HPF (0-5/HPF) Urine Squamous Epithelial Cells Few /LPF (NONE-FEW) Urine Bacteria Negative /HPF (NONE-FEW) Urine Mucus None /HPF (NONE-FEW) Chemistry Test 09/25/18 03:52 09/25/18 05:34 09/25/18 06:00 White Blood Count 14.0 k/uL (4.5-11.0) Red Blood Count 4.93 M/uL (4.00-5.60) Hemoglobin 14.7 g/dL (14.0-18.0) Hematocrit 43.5 % (42.0-52.0) Mean Corpuscular Volume 88.2 fL (80.0-96.0) Mean Corpuscular Hemoglobin 29.9 pg (26.0-33.0) Mean Corpuscular Hemoglobin Concent 33.9 g/dL (32.0-36.0) Red Cell Distribution Width 14.4 % (11.5-14.5) Platelet Count 141 K/uL (150-450) Mean Platelet Volume 8.8 fL (7.2-11.1) Neutrophils (%) (Auto) 93.1 % (39.4-72.5) Lymphocytes (%) (Auto) 4.3 % (17.6-49.6) Monocytes (%) (Auto) 2.1 % (4.1-12.4) Eosinophils (%) (Auto) 0.2 % (0.4-6.7) Basophils (%) (Auto) 0.3 % (0.3-1.4) Nucleated RBC Relative Count (auto) 0.1 /100WBC Neutrophils # (Auto) 13.0 K/uL (2.0-7.4) Lymphocytes # (Auto) 0.6 K/uL (1.3-3.6) Monocytes # (Auto) 0.3 K/uL (0.3-1.0) Eosinophils # (Auto) 0.0 K/uL (0.0-0.5) Basophils # (Auto) 0.0 K/uL (0.0-0.1) Nucleated RBC Absolute Count (auto) 0.02 K/uL Prothrombin Time 14.5 seconds (12.0-14.4) Prothromb Time International Ratio 1.12 Activated Partial Thromboplast Time 26 seconds (23-35) Blood Gas Patient Temperature 101.1 DEGREES Venous Blood pH 7.33 (7.31-7.41) Venous Blood Partial Pressure CO2 32 mmHg Venous Blood Partial Pressure O2 38 mmHg Venous Blood HCO3 16 mmol/L Venous Blood Oxygen Saturation 65 % Venous Blood Base Excess -9 mmol/L Oxygen Liters/Minute 88% on ra Glomerular Filtration Rate Calc 52.0 Calcium Level 9.1 mg/dl (8.4-10.2) Total Bilirubin 1.2 mg/dl (0.2-1.3) Aspartate Amino Transf (AST/SGOT) 22 U/L (0-35) Alanine Aminotransferase (ALT/SGPT) 22 U/L (0-56) Alkaline Phosphatase 147 U/L (0-126) Total Creatine Kinase 110 U/L (55-170) Total Protein 6.6 g/dl (6.3-8.2) Albumin 3.8 g/dl (3.5-5.0) Lipase 85 U/L (23-300) Urine Color Straw Urine Clarity Clear Urine pH 5.0 pH (4.8-9.5) Urine Specific Anselmo 1.031 Urine Protein Negative mg/dL (NEGATIVE) Urine Glucose (UA) Negative mg/dL (NEGATIVE) Urine Ketones Negative mg/dL (NEGATIVE) Urine Blood Small (NEGATIVE) Urine Nitrite Negative (NEGATIVE) Urine Bilirubin Negative (NEGATIVE) Urine Urobilinogen Negative mg/dL (0.2-1.9) Urine Leukocyte Esterase Negative (NEGATIVE) Urine RBC 1 /HPF (0-2/HPF) Urine WBC <1 /HPF (0-5/HPF) Urine Squamous Epithelial Cells Few /LPF (NONE-FEW) Urine Bacteria Negative /HPF (NONE-FEW) Urine Mucus None /HPF (NONE-FEW) Coagulation Test 09/25/18 03:52 Prothrombin Time 14.5 seconds Prothromb Time International Ratio 1.12 Activated Partial Thromboplast Time 26 seconds Urinalysis Test 09/25/18 05:34 Urine Color Straw Urine Clarity Clear Urine pH 5.0 pH (4.8-9.5) Urine Specific Anselmo 1.031 Urine Protein Negative mg/dL (NEGATIVE) Urine Glucose (UA) Negative mg/dL (NEGATIVE) Urine Ketones Negative mg/dL (NEGATIVE) Urine Blood Small (NEGATIVE) Urine Nitrite Negative (NEGATIVE) Urine Bilirubin Negative (NEGATIVE) Urine Urobilinogen Negative mg/dL (0.2-1.9) Urine Leukocyte Esterase Negative (NEGATIVE) Urine RBC 1 /HPF (0-2/HPF) Urine WBC <1 /HPF (0-5/HPF) Urine Squamous Epithelial Cells Few /LPF (NONE-FEW) Urine Bacteria Negative /HPF (NONE-FEW) Urine Mucus None /HPF (NONE-FEW) EKG/Imaging EKG Interpretation 12 lead EKG: Sinus tachycardia with first-degree AV block, QTC 444, ventricular rate 108, no acute ischemic findings Rhythm: Sinus tachycardia [place]: normal QRS: normal ST segments: normal Imaging FACILITY: [facility] [place] PATIENT NAME: Duy Woo : 1930 MR: [id number] V: [id number] EXAM DATE: ORDERING PHYSICIAN: CANDIDA WALSH TECHNOLOGIST: Location: [facility] Patient: Duy Woo : 1930 Visit/Account:[id number] Date of Sevice: 09/25/2018 CT VERTEBRA CERVICAL (NON CON) HISTORY: Fall COMPARISON STUDIES: none TECHNIQUE: Axial images were obtained from the skull base through the upper thoracic spine without intravenous contrast. Coronal and sagittal reformatted images were obtained from the axial source data. One of the following dose optimization techniques was utilized in the performance of this exam: Automated exposure control; adjustment of the mA and/or kV according to the patient's size; or use of an iterative reconstruction technique. Specific details can be referenced in the facility's radiology CT exam operational policy. FINDINGS: There is no evidence for acute fracture the cervical spine. Significant degenerative changes are noted. Facets align appropriately. Significant facet arthropathy is noted and C3 and C4. C6-C7 may be fused. Osseous structures are heterogeneous and it would be difficult to exclude myeloma or metastatic disease. The surrounding soft tissues are unremarkable. Lung apices are unremarkable. IMPRESSION: 1. No evidence for an acute fracture of the cervical spine. 2. Degenerative changes are noted throughout cervical spine. 3. Heterogeneous osseous structures could represent aggressive osteopenia although metastatic disease or myeloma is not excluded Report Dictated By: Tramaine Ruano MD at 09/25/2018 4:54 AM Report E-Signed By: Tramaine Ruano MD at 09/25/2018 4:57 AM PATIENT NAME: Duy Woo : 1930 MR: [id number] V: [id number] EXAM DATE: [id number] ORDERING PHYSICIAN: CANDIDA WALSH TECHNOLOGIST: Location: [facility] Patient: Duy Woo : 1930 Visit/Account:[id number] Date of Sevice: 09/25/2018 CT CHEST ABDOMEN PELVIS W/CON HISTORY: Fall, altered mental status TECHNIQUE: CT chest, abdomen and pelvis with intravenous contrast. Contiguous helical images was performed from the lung apices to the symphysis pubis. One of the following dose optimization techniques was utilized in the performance of this exam: Automated exposure control; adjustment of the mA and/or kV according to the patient's size; or use of an iterative reconstruction technique. Specific details can be referenced in the facility's radiology CT exam operational policy. CONTRAST: 75 cc of [id number] COMPARISON: None. FINDINGS: CHEST: Heart/vessels: There is atherosclerotic calcification of the aortic valve and coronary vessels Mediastinum: Negative. Lymph nodes: Small mediastinal lymph nodes are noted. Subcarinal lymph node image 69 measures 2.8 x 0.8 cm Lungs/pleura: Negative. Bones/soft tissues: There is diffuse osteopenia with some focal lucencies. This may represent more aggressive osteopenia but it would be difficult to exclude osseous metastatic disease or myeloma. ABDOMEN/PELVIS: Hepatobiliary: Negative. Spleen: Negative. Adrenals: Negative. Kidneys/: Prostate gland is absent Pancreas: Negative. GI: Negative. Vessels/spaces/nodes: There is atherosclerotic calcification. Bones/soft tissues: Osseous structures are heterogeneous with numerous lucencies. Differential diagnosis is aggressive osteopenia versus metastatic disease or myeloma. Patient has a left hip arthroplasty. IMPRESSION: 1. No evidence for acute traumatic injury to the chest, abdomen or pelvis. 2. Prostate gland is absent. 3. Osseous structures are heterogeneous with scattered areas of lucency. I cannot exclude metastatic disease or myeloma. Please correlate clinically PATIENT NAME: Duy Woo : 1930 MR: [id number] V: [id number] EXAM DATE: ORDERING PHYSICIAN: CANDIDA WALSH TECHNOLOGIST: Location: [facility] Patient: Duy Woo : 1930 Visit/Account:[id number] Date of Sevice: 09/25/2018 CT BRAIN NO CONTRAST HISTORY: Fall, altered mental status COMPARISON STUDIES: 06/06/2017 TECHNIQUE: Contiguous axial images were obtained from the skull base to the vertex. One of the following dose optimization techniques was utilized in the performance of this exam: Automated exposure control; adjustment of the mA and/or kV according to the patient's size; or use of an iterative reconstruction technique. Specific details can be referenced in the facility's radiology CT exam operational policy. FINDINGS: Hemorrhage: Negative Ventricles / sulci / fissures: There is mild atrophy Masses / midline shift: Negative White matter: Confluent periventricular white matter low densities likely on the basis of small vessel disease. Julio-white differentiation: Old left basal ganglia infarct is stable Extra-axial spaces: Atherosclerotic calcification of the vascular system is noted Bones and skull base: Slightly heterogeneous osseous structures are noted Visualized mastoid air cells / paranasal sinuses: Nasal septum is deviated towards the left There is soft tissue swelling over the forefoot. IMPRESSION: 1. No evidence for acute intracranial hemorrhage, mass or acute ischemia. 2. 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 3. Age-related changes as described above. 4. Soft tissue swelling over the forefoot. ED Course/Re-evaluation ED Course Patient is a 88-year-old male here with complaints of altered mental status status post fall last known normal approximately 1:00 this morning coming from assisted living facility [facility]. Patient was found to have a lactate of 6.9. Patient is tachycardic, febrile at time of evaluation. Blood cultures collected and pending. CT of the head, C-spine, chest, pelvis showed no acute findings. Patient did have a white blood cell count of 14,000. EKG showed sinus tachycardia without ischemic changes. Patient was given ceftriaxone 2 g. I discussed the patient with who is the hospitalist on service. Patient was admitted for further treatment and care. Decision to Disposition Date: Sep 25, 2018 Decision to Disposition Time: 05:57 Depart Departure Latest Vital Signs Vital Signs Date Time Temp Pulse Resp B/P (MAP) Pulse Ox O2 Delivery O2 Flow Rate FiO2 09/25/18 06:05 114 24 92 09/25/18 05:30 116/63 (80) 09/25/18 04:50 2.0 09/25/18 03:40 101.1 Impression: Primary Impression: Sepsis Additional Impressions: Altered mental status Fall Condition: Improved Disposition: Admitted from ER Referrals: HAROLDO DELUNA MD (PCP) Problem Qualifiers CANDIDA WALSH DO Sep 25, 2018 03:53
[2018-09-25] MEDS ORDERED: IOPAMIDOL 76% 100 ML INFUS BTL 100 ML ONE (03:59)
[2018-09-25 04:11] LABS: PLATELET COUNT, AUTOMATED 141 K/uL (150-450)
[2018-09-25] MEDS ORDERED: CALC-707 PO (04:15)
[2018-09-25] MEDS ORDERED: SERT25TA90 PO (04:15)
[2018-09-25 04:18] LABS: INR 1.12
[2018-09-25] MEDS ORDERED: ACETAMINOPHEN(*)1000 MG/100 ML 100 ML IVPB ONE (04:25)
--- NOTE | 2018-09-25 05:03 | RADIOLOGY IMAGING REPORT ---
FACILITY: [facility] PATIENT NAME: Duy Woo : 1930 MR: [id number] V: [id number] EXAM DATE: ORDERING PHYSICIAN: CANDIDA WALSH TECHNOLOG[place]: [place] [facility] [place] Duy Woo : 1930 Visit/Account:[id number] Date of Sevice: 09/25/2018 CT BRAIN NO CONTRAST HISTORY: Fall, altered mental status COMPARISON STUDIES: 06/06/2017 TECHNIQUE: Contiguous axial images were obtained from the skull base to the vertex. One of the following dose optimization techniques was utilized in the performance of this exam: Autom ated exposure control; adjustment of the mA and/or kV according to the patient's size; or use of an i terative reconstruction technique. Specific details can be referenced in the facility's radiology C T exam operational policy. FINDINGS: Hemorrhage: Negative Ventricles / sulci / fissures: There is mild atrophy Masses / midline shift: Negative White matter: Confluent periventricular white matter low densities likely on the basis of small vesse l disease. Julio-white differentiation: Old left basal ganglia infarct is stable Extra-axial spaces: Atherosclerotic calcification of the vascular system is noted Bones and skull base: Slightly heterogeneous osseous structures are noted Visualized mastoid air cells / paranasal sinuses: Nasal septum is deviated towards the left There is soft tissue swelling over the forefoot. IMPRESSION: 1. No evidence for acute intracranial hemorrhage, mass or acute ischemia. 2. 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 3. Age-related changes as described above. 4. Soft tissue swelling over the forefoot. Report Dictated By: Tramaine Ruano MD at 09/25/2018 4:51 AM Report E-Signed By: Tramaine Ruano MD at 09/25/2018 4:57 AM WSN:[id number]
--- NOTE | 2018-09-25 05:03 | RADIOLOGY IMAGING REPORT ---
FACILITY: [facility] PATIENT NAME: Duy Woo : 1930 MR: [id number] V: [id number] EXAM DATE: ORDERING PHYSICIAN: CANDIDA WALSH TECHNOLOGIST: [place] [facility] [place]uy [place]Wo : 1930 Visit/Account:[id number] Date of Sevice: 09/25/2018 CT CHEST ABDOMEN PELVIS W/CON HISTORY: Fall, altered mental status TECHNIQUE: CT chest, abdomen and pelvis with intravenous contrast. Contiguous helical images was per formed from the lung apices to the symphysis pubis. One of the following dose optimization techniques was utilized in the performance of this exam: Autom ated exposure control; adjustment of the mA and/or kV according to the patient's size; or use of an i terative reconstruction technique. Specific details can be referenced in the facility's radiology C T exam operational policy. CONTRAST: 75 cc of Isovue-370 COMPARISON: None. FINDINGS: CHEST: Heart/vessels: There is atherosclerotic calcification of the aortic valve and coronary vessels Mediastinum: Negative. Lymph nodes: Small mediastinal lymph nodes are noted. Subcarinal lymph node image 69 measures 2.8 x 0.8 cm Lungs/pleura: Negative. Bones/soft tissues: There is diffuse osteopenia with some focal lucencies. This may represent more a ggressive osteopenia but it would be difficult to exclude osseous metastatic disease or myeloma. ABDOMEN/PELVIS: Hepatobiliary: Negative. Spleen: Negative. Adrenals: Negative. Kidneys/: Prostate gland is absent Pancreas: Negative. GI: Negative. Vessels/spaces/nodes: There is atherosclerotic calcification. Bones/soft tissues: Osseous structures are heterogeneous with numerous lucencies. Differential diagn osis is aggressive osteopenia versus metastatic disease or myeloma. Patient has a left hip arthroplas ty. IMPRESSION: 1. No evidence for acute traumatic injury to the chest, abdomen or pelvis. 2. Prostate gland is absent. 3. Osseous structures are heterogeneous with scattered areas of lucency. I cannot exclude metastatic disease or myeloma. Please correlate clinically Report Dictated By: Tramaine Ruano MD at 09/25/2018 4:37 AM Report E-Signed By: Tramaine Ruano MD at 09/25/2018 4:57 AM WSN:[id number]
--- NOTE | 2018-09-25 05:03 | RADIOLOGY IMAGING REPORT ---
FACILITY: [facility] [place] PATIENT NAME: Duy Woo : 1930 MR: [id number] V: [id number] EXAM DATE: ORDERING PHYSICIAN: CANDIDA WALSH TECHNOLOGIST: Location: [facility] Patient: Duy Woo : 1930 Visit/Account:[id number] Date of Sevice: 09/25/2018 CT VERTEBRA CERVICAL (NON CON) HISTORY: Fall COMPARISON STUDIES: none TECHNIQUE: Axial images were obtained from the skull base through the upper thoracic spine without i ntravenous contrast. Coronal and sagittal reformatted images were obtained from the axial source data . One of the following dose optimization techniques was utilized in the performance of this exam: Autom ated exposure control; adjustment of the mA and/or kV according to the patient's size; or use of an i terative reconstruction technique. Specific details can be referenced in the facility's radiology C T exam operational policy. FINDINGS: There is no evidence for acute fracture the cervical spine. Significant degenerative changes are note d. Facets align appropriately. Significant facet arthropathy is noted and C3 and C4. C6-C7 may be fus ed. Osseous structures are heterogeneous and it would be difficult to exclude myeloma or metastatic d isease. The surrounding soft tissues are unremarkable. Lung apices are unremarkable. IMPRESSION: 1. No evidence for an acute fracture of the cervical spine. 2. Degenerative changes are noted throughout cervical spine. 3. Heterogeneous osseous structures could represent aggressive osteopenia although metastatic disease or myeloma is not excluded Report Dictated By: Tramaine Ruano MD at 09/25/2018 4:54 AM Report E-Signed By: Tramaine Ruano MD at 09/25/2018 4:57 AM WSN:[id number]
[2018-09-25] MEDS ORDERED: cefTRIAXone 1 GM VIAL IVP ONE ×2 (05:05→06:05)
[2018-09-25] MEDS ORDERED: cefTRIAXone 2 GM VIAL IVP ONE (05:20)
--- NOTE | 2018-09-25 06:01 | EKG ---
[facility] PATIENT NAME: MYLENE ALLEN : [id number] MR: [id number] V: [id number] EXAM DATE: ORDERING PHYSICIAN: CANDIDA WALSH TECHNOLOGIST: TOMMIE Test Reason : NEURO Blood Pressure : / mmHG Vent. Rate : 108 BPM Atrial Rate : 108 BPM P-R Int : 240 ms QRS Dur : 118 ms QT Int : 332 ms P-R-T Axes : 030 -14 082 degrees QTc Int : 444 ms Sinus tachycardia with 1st degree AV block Septal infarct , age undetermined ST and T wave abnormality, consider lateral ischemia Abnormal ECG When compared with ECG of 06-JUN-2017 13:03, ID interval has increased Septal infarct is now present T wave inversion now evident in Lateral leads Confirmed by FROYLAN GALICIA ([id number]) on 09/25/2018 6:40:09 AM Referred By: Confirmed By:FROYLAN GALICIA
[2018-09-25] MEDS ORDERED: INFLUENZA VIRUS VAC 0.5ML SYR IM ONLY ONE (06:05)
[2018-09-25] MEDS ORDERED: LR(*) 1000 ML BAG 1,000 ML IV PRN (06:05)
[2018-09-25] MEDS ORDERED: INSULIN HUM LISPRO 100 UN/ML 3 ML VIAL SUBQ PRN (06:05)
--- NOTE | 2018-09-25 06:39 | History & Physical ---
History of Present Illness History of Present Illness 88yo male with a h/o CAD who came to the ER for AMS and weakness. The history is from the ER providers and a friend. He was in his normal state of health yesterday evening. He was found at about 1am this morning, very confused. He was crawling around his room. There was some broken glass on the floor from a broken picture. His only complaint to the ER staff was that he hadn't slept. He had a loose stool in the ER. His friend found a blanket from his home that had stool on it, also. In the ER, he was febrile to101.1 and tachycardic to 126 bpm. He received 1L IVF, Ceftriaxone and IV Tylenol. History Problems: (1) T2DM (type 2 diabetes mellitus) Status: Chronic (2) History of prostate cancer (3) HTN (hypertension) Status: Chronic (4) Depression Status: Chronic (5) Dementia (6) CAD (coronary artery disease) Status: Chronic (7) CKD (chronic kidney disease) stage 3, GFR 30-59 ml/min Status: Chronic Home Meds Active Scripts Lisinopril (LISINOPRIL) 10 Mg Tablet, 0.5 TAB PO QDAY, #90 TAB 4 Refills Prov:HAROLDO DELUNA MD 03/03/18 Atorvastatin Calcium (ATORVASTATIN CALCIUM) 10 Mg Tablet, 1 TAB PO QODAY for 90 Days, #45 TAB 4 Refills Prov:HAROLDO DELUNA MD 01/22/18 Nitroglycerin (NITROGLYCERIN) 0.4 Mg Tab.subl, 0.4 MG SL Q5MIN PRN for chest pain for 90 Days, #10 TAB Prov:HAROLDO DELUNA MD 09/03/17 Cholecalciferol (Vitamin D3) (VITAMIN D-3) 2,000 Unit Capsule, 2000 UNIT PO QDAY for 90 Days, #90 CAPSULE 4 Refills Prov:HAROLDO DELUNA MD 09/03/17 Reported Medications Sertraline Hcl (SERTRALINE HCL) 25 Mg Tablet, 1 TAB PO QHS, TAB 09/25/18 Calcium Carbonate (ANTACID) 300 Mg Tab.chew, 750 MG PO Q2H PRN for HEARTBURN, TAB.CHEW 09/25/18 Dextran 70/Hypromellose (ARTIFICIAL TEARS) 1 Each Droperette, 1 GTT OP PRN 05/21/18 Acetaminophen (TYLENOL) 325 Mg Tablet, 1-2 TAB PO Q4H PRN for PAIN/TEMP OVER 100.4, TAB 03/03/18 Aspirin (ASPIR 81) 81 Mg Tablet.dr, 1 TAB PO QDAY, TAB 03/08/17 Polyethylene Glycol 3350 (MIRALAX) Unknown Strength Powd.pack, 17 GM PO QDAY, PKT 10/03/16 Discontinued Scripts Sertraline Hcl (SERTRALINE HCL) 25 Mg Tablet, 1 TAB PO QDAY for 90 Days, #90 TAB 4 Refills Prov:HAROLDO DELUNA MD 10/28/17 Allergies: Coded Allergies: strawberry (Verified Allergy, Mild, 06/06/17) Hx Smoking: Yes Smoking Status: Never Smoker Exposure to Second Hand Smoke?: No Caffeine Intake: Coffee, Tea Caffeine/Cups Per Day: 4-5 Hx Alcohol Use: Yes ([place] Promoboxx) Hx Substance Use Disorder: No Review of Systems All Systems Reviewed/Normal: Yes, Except as Noted Exam Vital Signs Vital Signs Date Time Temp Pulse Resp B/P (MAP) Pulse Ox O2 Delivery O2 Flow Rate FiO2 09/25/18 05:00 147/72 (97) 09/25/18 04:54 107 30 95 09/25/18 04:50 2.0 09/25/18 03:40 101.1 General Appearance: No Acute Distress (Sleepy.) Neuro: No Gross deficits (Awakens to voice and mumbles answers, but falls right back to sleep. Not following commands) Eyes: PERRLA ENT: Moist Mucous Membranes (No obvious tongue injury) Neck: Other (No nuchal rigidity on passive flexion) Cardiovascular: Regular Rate and Rhythm Respiratory: Clear to Auscultation GI: Abd Soft and Non-Tender Extremities: No Edema Integumentary: Other (Multiple small lacerations on toes and foot bilaterally. Knees have small abrasions bilaterally) Medical Decision Making Data Points Result Diagram: 09/25/1835109/25/18351 Item Value Date Time Troponin I 0.044 ng/ml 09/25/18 035 Total Creatine Kinase 110 U/L 09/25/18 035 Total Bilirubin 1.2 mg/dl 09/25/18 035 Aspartate Amino Transf (AST/SGOT) 22 U/L 7/4/351 Alanine Aminotransferase (ALT/SGPT) 22 U/L 09/25/18 035 Creatinine 1.30 mg/dl H 08/05/18 0754 Creatinine 1.30 mg/dl H 09/25/18351 Blood Urea Nitrogen 21 mg/dl 08/05/18 0754 Blood Urea Nitrogen 25 mg/dl H 09/25/18 035 Alkaline Phosphatase 147 U/L H 09/25/18351 Lactate 6.9 mmol/L *H 09/25/18351 Calcium Level 9.1 mg/dl 09/25/18351 Neutrophils (%) (Auto) 93.1 % H 09/25/18351 Lymphocytes (%) (Auto) 4.3 % L 09/25/18351 Monocytes (%) (Auto) 2.1 % L 09/25/18351 Eosinophils (%) (Auto) 0.2 % L 09/25/18351 Venous Blood pH 7.33 09/25/18351 Venous Blood Partial Pressure CO2 32 mmHg 09/25/18351 Venous Blood Partial Pressure O2 38 mmHg 09/25/18351 Venous Blood HCO3 16 mmol/L 09/25/18351 Venous Blood Oxygen Saturation 65 % 09/25/18351 Prothromb Time International Ratio 1.12 09/25/18351 EKG / Imaging Imaging C Spine CT - 1. No evidence for an acute fracture of the cervical spine. 2. Degenerative changes are noted throughout cervical spine. 3. Heterogeneous osseous structures could represent aggressive osteopenia although metastatic disease or myeloma is not excluded Chest/Abd/Pelvis CT - 1. No evidence for acute traumatic injury to the chest, abdomen or pelvis. 2. Prostate gland is absent. 3. Osseous structures are heterogeneous with scattered areas of lucency. I cannot exclude metastatic disease or myeloma. Please correlate clinically Head CT - 1. No evidence for acute intracranial hemorrhage, mass or acute ischemia. 2. 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 3. Age-related changes as described above. 4. Soft tissue swelling over the forefoot. Assessment and Plan Problems: (1) Sepsis Status: Acute Assessment & Plan: He presented with fever, confusion, diarrhea, and weakness a few hours prior to coming to the ER. He had an elevated lactate/wbc, sinus tachycardia to 126 bpm, and AMS. He has received 1 liter of fluid, but will need 1.5 liters more by the sepsis criteria. UA is pending. CT of the chest without focal infiltrate. No obvious cellulitis. Will do stool cultures. If diarrhea becomes more prominent, then might need to change from ceftriaxone to levofloxacin/metronidazole. (2) Altered mental status Status: Acute Assessment & Plan: Secondary to above. No nuchal rigidity or hip flexion discomfort on exam. Head CT without acute findings. He does open eyes to voice, but falls back asleep. (3) CAD (coronary artery disease) Status: Chronic Assessment & Plan: Troponin is in the borderline region, so a repeat is pending. Holding ASA for now. (4) T2DM (type 2 diabetes mellitus) Status: Chronic Assessment & Plan: Diet controlled. Will follow AC and HS glucose with SSI level 2. (5) Laceration Status: Acute Assessment & Plan: Multiple very small lacerations on feet/toes from broken glass on floor. No obvious signs of retained glass, but will need to follow. (6) Abnormal bone radiograph Status: Chronic Assessment & Plan: Scattered areas on lucency seen diffusely in osseous stru ctures on CT. Metastatic disease or myeloma cannot be excluded and might need to be worked up if clinically indicated when above issues resolved. (7) CKD (chronic kidney disease) stage 3, GFR 30-59 ml/min Status: Chronic Copies to: HAROLDO DELUNA MD ; Venous Thromboembolism Antithrombotics Is Pt On Any Antithrombotics?: No Exam Sepsis Risk: No Definite Risk FROYLAN GALICIA MD Sep 25, 2018 06:39
[2018-09-25] MEDS ORDERED: [UNRECOGNIZED DRUG - CODE] PO (07:20)
[2018-09-25] MEDS ORDERED: ENOXAPARIN 40 MG/0.4ML SYR SC SCH (09:00)
[2018-09-25] MEDS ORDERED: AZITHROMYCIN(*) 500 MG 500 MG in NS(*) 0.9% 250 ML BAG 250 ML IVPB SCH (09:00)
--- NOTE | 2018-09-25 09:52 | Medical Nutrition Therapy ---
Nutrition Anthropometrics Height (Inches): 71 (from prevous admission) Weight (Pounds): 187 Weight (Calculated Kilograms): 84.822 BMI: 26.1 Twin Nutrition Score: Probably Inadequate Twin Nutrition Risk Score: 14 Dietary Referral Nutrition Risk Factors: Nutrition Risk Comment: Nutritional Diagnosis Nutritional Risk Acuity 2: Sepsis Nutritional Risk Acuity 3: Nausea Nutritional Risk Acuity 4: Modified Diet Past Medical History: DMII Nutritional Acuity: 2-Moderate Nutrition Diagnosis: Increased Nutrient Needs Nutrition Etiology: Physiological Causes Nutrition Problem/Etiology/Sym: r/t dx sepsis AEB alb 3 Energy Requirement: 2000 (MSJ) Protein Requirement: 84 (1gm/kg) Diet Type: Diabetic Nutrition Intervention: Cont diet as ordered, Encourage intake Nutrition Monitoring & Eval Nutrition Goals: Eat 75-100% Meal, Drink > 2 liters/day RD Patient Assessment Time: [address] Assessment Type: RD Assessment Patient Nutrition Acuity: 2-Moderate Follow Up Date: Sep 28, 2018 Nutritional Comment: 09/25 Pt admitted with dx sepsis. pt on diabetic diet but no intake reported at this time. Alb 3.8, BUN elevated at 25, creatinine elevated at 1.3, GFR 52, RBG ranging 86-195. Pt is having N/V. Will cont to monitor and encourage intake. SB RICHARDSON Sep 25, 2018 09:52
[2018-09-25] MEDS ORDERED: PIPERACILLIN/TAZO SOD* 2.25 GM 2.25 GM in NS(*) 0.9% 100 ML MINI-BAG 100 ML IVPB SCH (11:00)
--- NOTE | 2018-09-25 11:57 | EKG ---
FACILITY: [facility] PATIENT NAME: MYLENE ALLEN : [id number] MR: [id number] V: [id number] EXAM DATE: ORDERING PHYSICIAN: FROYLAN GALICIA TECHNOLOGIST: PEYTON Prakash Reason : ELEVATED TROPONIN Blood Pressure : / mmHG Vent. Rate : 079 BPM Atrial Rate : 079 BPM P-R Int : 220 ms QRS Dur : 116 ms QT Int : 446 ms P-R-T Axes : 030 -24 261 degrees QTc Int : 511 ms Sinus rhythm with 1st degree AV block ST and T wave abnormality, consider lateral ischemia Prolonged QT Nonspecific intraventricular conduction delay When compared with ECG of 25-SEP-2018 04:52, Criteria for Septal infarct are no longer present ST no longer elevated in Anterior leads T wave inversion now evident in Inferior leads T wave inversion more evident in Lateral leads QT has lengthened Confirmed by Kishan Chinchilla ([id number]) on 09/25/2018 8:25:59 PM Referred By: GRAYSON Confirmed By:Kishan Amor
--- NOTE | 2018-09-25 12:40 | RADIOLOGY IMAGING REPORT ---
FACILITY: [facility] [place] PATIENT NAME: Duy Woo : 1930 MR: [id number] V: [id number] EXAM DATE: ORDERING PHYSICIAN: FROYLAN GALICIA [place]CHNOLOG[place]: [place] [facility] [place]uy [place] : 1930 Visit/Account:[id number] Date of Sevice: 09/25/2018 CHEST SINGLE AP Indication: hypoxia, fever Comparison: None available Findings: Heart size within normal limits. There is no focal infiltrate or lobar consolidation. Low lung volumes with mild vascular congestion . Atelectasis and/or scarring within the left lung base, grossly unchanged. Mild nonspecific bronchia l wall thickening. No pneumothorax or pleural effusion. IMPRESSION: 1. No acute cardiopulmonary process. 2. Mild nonspecific bronchial wall thickening Report Dictated By: Aaron Robles MD at 09/25/2018 12:33 PM Report E-Signed By: Aaron Robles MD at 09/25/2018 12:34 PM WSN:[id number]
[2018-09-25] MEDS ORDERED: IV BOLUS 500 ML IVSOL IV ONE (14:35)
[2018-09-25] MEDS: LR(*) 1000 ML BAG 1,000 ML IV PRN ×2 (14:41→18:52)
[2018-09-25] MEDS ORDERED: ASPIRIN 325 MG ENTERIC COATED PO ONE (15:00)
[2018-09-25] MEDS ORDERED: VANCOMYCIN(*) 1 GM VIAL 2 GM, VANCOMYCIN (*) 0.5 GM VIAL 0.25 GM in NS(*) 0.9% 500 ML B... IVPB ONE (15:00)
--- NOTE | 2018-09-25 15:02 | Pharmacy Note ---
Vancomycin Management Note Vanco Dosing Note Pharmacy Services Pharmacokinetic Dosing Consult, Vancomycin Pharmacy has been consulted for dosing and monitoring of vancomycin for 88 M for BACTEREMIA. Pertinent Past Medical History: CKD, DM2 Antibiotics prior to admission; UNKNOWN Additional Antimicrobials: ZOSYN 2.25 X 1 DOSE CEFTRIAXONE 2G IVP QDAY Start 09/25/18 0530 AZITHROMYCIN 500MG IV X 1 DOSE Patient Information: Height (cm): 180.34cm Actual Body Weight (ABW): 84.8kg Pertinent Lab Tests WHITE BLOOD COUNT 14 NEUTROPHILS 93.1 BLOOD UREA NITROGEN 25 SCR 1.3 Culture Results: BLOOD G+ URINE * SPUTUM * WOUND * Assessment: CrCl 1.3 Renal function is stable at this time. Appears to be near his baseline. Vancomycin Monitoring Assessment Goal Vancomycin Trough Level: 15-20 Plan: 1) Vancomycin 25 mg/kg loading dose (based on ABW): 2250 mg IV x 1 dose 09/25/18 at 1500hrs 2) Vancomycin maintenance dose (based on ABW): 1250 mg q24h 3) Vancomycin monitoring: Random vanco level planned for 12 hrs post load (09/26/18 at 0300) Pharmacy will continue to monitor daily and adjust regimen as appropriate. Thank you for the consult. MARQUISE ASTORGA Sep 25, 2018 15:02
[2018-09-25] MEDS: SERTRALINE HCL 50 MG TAB PO SCH (21:08)
[2018-09-25] MEDS: ENOXAPARIN 100 MG/ML SYR SC SCH (21:09)
[2018-09-26] MEDS: cefTRIAXone 2 GM VIAL IVPB SCH (05:08)
[2018-09-26] MEDS: LR(*) 1000 ML BAG 1,000 ML IV PRN ×2 (05:08→20:58)
[2018-09-26 05:28] LABS: PLATELET COUNT, AUTOMATED 101 K/uL (150-450)
[2018-09-26] MEDS ORDERED: cefTRIAXone 2 GM VIAL IVP SCH (06:00)
[2018-09-26 07:12] VITALS: BP 132/56
--- NOTE | 2018-09-26 07:14 | EKG ---
FACILITY: [facility] PATIENT NAME: MYLENE ALLEN : [id number] MR: [id number] V: [id number] EXAM DATE: ORDERING PHYSICIAN: CARINA AMOR TECHNOLOGIST: PEYTON Prakash Reason : ELEVATED TROPONIN Blood Pressure : / mmHG Vent. Rate : 066 BPM Atrial Rate : 066 BPM P-R Int : 218 ms QRS Dur : 120 ms QT Int : 480 ms P-R-T Axes : 050 -15 -53 degrees QTc Int : 503 ms Sinus rhythm with 1st degree AV block Nonspecific intraventricular conduction delay ST and T wave abnormality, consider lateral ischemia When compared with ECG of 25-SEP-2018 11:40, No significant change was found Confirmed by Carina Chinchilla ([id number]) on 09/26/2018 7:53:29 AM Referred By: JEFF Confirmed By:Carina Amor
--- NOTE | 2018-09-26 10:00 | NUR ---
Physical Therapy Impression Wound eval complete. Dr. Cullen reports ulcer on medial, distal portion of the R) 2nd toe, requesting wound care consult. Pt drowsy and minimally communicative throughout session. Pt with calloused tissue and small area of necrosis on the distal tip of the medial 2nd toe, with purulent drainage expressed with palpation. PT completed conservative, selective debridement of non-viable tissue and slough with tweezers and scissors to the depth of the sub cutaneous tissue. Wound bed revealed, with pale pink tissue present throughout and majority of calloused tissue removed from wound borders. PT cleansed the wound with sterile saline and gauze and then covered the wound with bordered gauze dressing. Prior to dressing the wound, Dr. Cullen visualized the wound. PT encouraged RN to relieve pressure from the area and maintain the dressing intact. PT to f/u on Saturday09/29/18. Physical Therapy Goals Patient's Goals
--- NOTE | 2018-09-26 10:15 | Hospitalist Progress Note ---
Subjective Progress Notes Subjective He is awake and alert. He denies any CP or dyspnea this AM. Some mild sore throat. Physical Exam Vital Signs Date Time Temp Pulse Resp B/P (MAP) Pulse Ox O2 Delivery O2 Flow Rate FiO2 09/26/18 07:12 96.8 64 20 132/56 (81) 94 Oxy Mask 09/26/18 06:12 3.0 Intake and Output 09/26/18 07:02 Intake Total 3315 ml Output Total 1250 ml Balance 2065 ml Intake Oral 560 ml IV Total 2755 ml Output Urine Total 1250 ml # Bowel Movements 1 General Appearance: Alert, Awake Cardiovascular: Other (Regular distant tones no obvious murmur) Respiratory: Other (Fairly clear) GI: Soft and Non-Tender Extremities: Warm, Perfused Integumentary: Generalized Fragile Skin, Other (erythema over right second toe and anterior tibial area/eschar with some purulent drainage right second toe medial aspect and distal) Result Diagram: 09/26/1851509/26/18515 Assessment and Plan Problems: (1) Sepsis Status: Acute Assessment & Plan: He presented with fever, confusion, diarrhea, and weakness a few hours prior to coming to the ER. He had an elevated lactate/WBC count, sinus tachycardia to 126 bpm, and AMS changes. He has received aggressive IV fluid. UA is unremarkable. CT of the chest without focal infiltrate. It appears he has right lower extremity cellulitis and right second toe wound. Blood cultures are growing GPC. He is now on IV vancomycin and Rocephin. Will have wound care see. He appears to be clinically improved. (2) Altered mental status Status: Acute Assessment & Plan: Improved. Secondary to acute infectious process most likely. (3) CAD (coronary artery disease) Status: Chronic Assessment & Plan: Troponin is elevated into positive range. He may have had an acute infarct or possible "strain" related to acute infectious process. He is on aspirin, Lovenox, and starting low dose beta antolin. Watch closely. (4) T2DM (type 2 diabetes mellitus) Status: Chronic Assessment & Plan: Diet controlled. Will follow AC and HS glucose with SSI level 2. (5) Laceration Status: Acute Assessment & Plan: Multiple very small lacerations on feet/toes from broken glass on floor. Wound care will be seeing. (6) Abnormal bone radiograph Status: Chronic Assessment & Plan: Scattered areas on lucency seen diffusely in osseous structures on CT. Metastatic disease or myeloma cannot be excluded and might need to be worked up if clinically indicated when above issues resolved. (7) CKD (chronic kidney disease) stage 3, GFR 30-59 ml/min Status: Chronic Exam Sepsis Risk: No Definite Risk BENI YARBROUGH MD Sep 26, 2018 10:15
[2018-09-26] MEDS: ENOXAPARIN 100 MG/ML SYR SC SCH ×2 (11:26→21:06)
[2018-09-26] MEDS: METOPROLOL TART 50 MG TAB PO SCH ×2 (11:26→20:59)
[2018-09-26 13:21] VITALS: BP 117/67
[2018-09-26] MEDS ORDERED: VANCOMYCIN(*) 1 GM VIAL 1 GM, VANCOMYCIN (*) 0.5 GM VIAL 0.25 GM in NS(*) 0.9% 250 ML B... IVPB SCH (15:00)
--- NOTE | 2018-09-26 15:14 | Antimicrobial Stewardship ---
Antimicrobial Stewardship Empiricly appropriate: Yes Comment ZOSYN 2.25 X 1 DOSE, AZITHROMYCIN 500MG IV X 1 DOSE, CONTINUED ON CEFTRIAXONE AND VANCOMYCIN FOR BACTEREMIA/SEPSIS Approriate Cultures done: Yes (BLOOD CULTURES GROWING GRAM POSITVE COCCI, STREP SPECIES BETA HEMOLYTIC) Renal/Hepatic dosing: Yes Serum concentration checked: Yes Comment VANCO TROUGH LEVEL TODAY AT 0300 WAS 12.56 AND ANOTHER TROUGH SCHEDULED FOR TOMORROW AT 1400. Reviewed for Drug Interaction: Yes Monitored for Toxicities: Yes Clinically stable/improving: Yes Comment WBC ARE TRENDING DOWN AND NOW AFEBRILE. IV to PO Opportunity: No (WAITING FOR CULTURE SENSITIVITIES) Determine cumulative duration: 7-10 DAYS BHAVNA PITTS Sep 26, 2018 15:14
[2018-09-26] MEDS: SERTRALINE HCL 50 MG TAB PO SCH (20:58)
[2018-09-26 21:11] VITALS: BP 132/67
[2018-09-27 02:38] VITALS: BP 122/57
[2018-09-27] MEDS: cefTRIAXone 2 GM VIAL IVPB SCH (05:11)
[2018-09-27 06:26] LABS: PLATELET COUNT, AUTOMATED 102 K/uL (150-450)
[2018-09-27 07:19] VITALS: BP 124/64
[2018-09-27] MEDS: LR(*) 1000 ML BAG 1,000 ML IV PRN ×2 (07:42→20:05)
[2018-09-27] MEDS: METOPROLOL TART 50 MG TAB PO SCH ×2 (09:03→22:39)
[2018-09-27] MEDS: ASPIRIN 325 MG ENTERIC COATED PO SCH (09:43)
--- NOTE | 2018-09-27 10:20 | Hospitalist Progress Note ---
Subjective Progress Notes Subjective This patient was admitted for sepsis. He had no acute events overnight. Patient Complains of: Cardiovascular: No: Chest Pain Respiratory: No: Shortness of Breath Physical Exam Vital Signs Date Time Temp Pulse Resp B/P (MAP) Pulse Ox O2 Delivery O2 Flow Rate FiO2 09/27/18 07:48 94 Nasal Cannula 3.0 09/27/18 07:19 99.0 58 18 124/64 (84) Intake and Output 09/27/18 07:02 Intake Total 625 ml Output Total 1125 ml Balance -500 ml Intake Oral 360 ml IV Total 265 ml Output Urine Total 1125 ml # Bowel Movements 1 Cardiovascular: Regular Rate and Rhythm Respiratory: Clear to Auscultation Integumentary: Other (Wound on right 2nd toe. Minimal erythema.) Result Diagram: 09/27/1853009/27/18530 Assessment and Plan Problems: (1) Sepsis Status: Acute Assessment & Plan: He presented with fever, confusion, diarrhea, and weakness a few hours prior to coming to the ER. It now appears to be secondary to cell ulitis of the toe/leg. His fever, WBC, and lactate have all improved. An echocardiogram report is pending. Repeat Blood cultures were ordered, but the patient refused. (2) Cellulitis of toe Assessment & Plan: He was found to have ulceration of the right 2nd toe and erythema up the leg. This has improved with ceftriaxone and vancomycin. His cultures have grown a Streptococcus species. The vancomycin is now stopped. An x-ray of the toe is pending. (3) Non-STEMI (non-ST elevated myocardial infarction) Status: Acute Assessment & Plan: He did develop an elevated troponin, but no ST elevation. His troponin has been trending back down. An echocardiogram is pending. He was on full dose Lovenox, but this has now been stopped. He has been started on aspirin and a beta antolin. (4) Altered mental status Status: Acute Assessment & Plan: Resolved. (5) T2DM (type 2 diabetes mellitus) Status: Chronic Assessment & Plan: He is not on outpatient medication. He is on sliding scale level #2, but has not required dosing. (6) Laceration Status: Acute Assessment & Plan: Multiple very small lacerations on feet/toes from broken glass on floor. Wound care will be seeing. (7) Abnormal bone radiograph Status: Chronic Assessment & Plan: Scattered areas on lucency seen diffusely in osseous structures on CT. Metastatic disease or myeloma cannot be excluded and might need to be worked up if clinically indicated when above issues resolved. (8) CKD (chronic kidney disease) stage 3, GFR 30-59 ml/min Status: Chronic Exam Sepsis Risk: No Definite Risk OSKAR SOOD DO Sep 27, 2018 10:20
[2018-09-27 11:05] VITALS: BP 137/68
--- NOTE | 2018-09-27 11:43 | NUR ---
Patient refused blood cultures today - MD notified.
--- NOTE | 2018-09-27 11:56 | NUR ---
Patient refused accucheck at this time, pt education provided
--- NOTE | 2018-09-27 12:38 | RADIOLOGY IMAGING REPORT ---
FACILITY: [facility] - [place] PATIENT NAME: Duy Woo : 1930 MR: [id number] V: [id number] EXAM DATE: ORDERING PHYSICIAN: OSKAR SOOD TECHNOLOGIST: Location: [facility] - [place] Patient: Duy Woo : 1930 Visit/Account:[id number] Date of Sevice: 09/27/2018 FOOT 2 VIEW RIGHT COMPARISON: None. HISTORY: infection to R second toe TECHNIQUE: 2 views of the right foot were obtained without weightbearing technique FINDINGS: BONES: Diffusely demineralized bones. Moderate hallux valgus, suboptimally assessed on nonweightbear ing films. Mild first MTP joint degenerative narrowing and marginal spurring. Second, third and fourt h toe hammertoe deformities. Suboptimal assessment of the distal phalanx of the second toe due to bon y overlap on the lateral film but there is no definite cortical loss or other evidence of osteomyelit is in the second toe or elsewhere.. Metatarsal bases are appropriately aligned. Calcaneal height is preserved SOFT TISSUES: Second toe soft tissue edema with curvilinear lucency which is probably due to gas gagandeep r the toenail rather than soft tissue gas. Mild vascular calcifications. OTHER: Negative. IMPRESSION: No radiographic evidence for osteomyelitis. Report Dictated By: Newton Carbajal at 09/27/2018 12:28 PM Report E-Signed By: Newton Carbajal at 09/27/2018 12:31 PM WSN:[id number]
--- NOTE | 2018-09-27 17:11 | NUR ---
Pt refused accucheck at this time. States "you may do it tomorrow"
--- NOTE | 2018-09-27 18:41 | NUR ---
pt refused to leave patient room for mary licona, pt educated and still refused.
[2018-09-27 19:55] VITALS: BP 137/69
[2018-09-27] MEDS: SERTRALINE HCL 50 MG TAB PO SCH (22:38)
[2018-09-28 03:55] VITALS: BP 149/73
[2018-09-28] MEDS ORDERED: MORPHINE 2 MG/ML SYR IVP PRN (04:30)
[2018-09-28] MEDS: cefTRIAXone 2 GM VIAL IVPB SCH (05:39)
[2018-09-28] MEDS: LR(*) 1000 ML BAG 1,000 ML IV PRN ×2 (06:01→23:49)
[2018-09-28 08:01] VITALS: BP 136/73
--- NOTE | 2018-09-28 08:15 | EKG ---
FACILITY: [facility] PATIENT NAME: MYLENE ALLEN : [id number] MR: [id number] V: [id number] EXAM DATE: ORDERING PHYSICIAN: MICHELE YARBROUGH TECHNOLOGIST: ZECHARIAH Test Reason : CP Blood Pressure : / mmHG Vent. Rate : 061 BPM Atrial Rate : 061 BPM P-R Int : 222 ms QRS Dur : 130 ms QT Int : 444 ms P-R-T Axes : 050 -28 021 degrees QTc Int : 446 ms Sinus rhythm with 1st degree AV block Nonspecific intraventricular block Abnormal ECG When compared with ECG of 26-SEP-2018 07:06, T wave inversion no longer evident in Inferior leads T wave inversion no longer evident in Lateral leads QT has shortened Confirmed by MICHELE UMANZOR ([id number]) on 09/28/2018 1:29:13 PM Referred By: POOJA Confirmed By:MICHELE UMANZOR
[2018-09-28] MEDS: ASPIRIN 325 MG ENTERIC COATED PO SCH (08:58)
[2018-09-28] MEDS: METOPROLOL TART 50 MG TAB PO SCH ×2 (08:58→20:24)
--- NOTE | 2018-09-28 10:40 | Hospitalist Progress Note ---
Subjective Progress Notes Subjective Nursing staff states the patient was complaining of chest pain earlier this am. He denies chest pain now. Troponin and EKG were ordered. Physical Exam Vital Signs Date Time Temp Pulse Resp B/P (MAP) Pulse Ox O2 Delivery O2 Flow Rate FiO2 09/28/18 08:44 90 Nasal Cannula 2.0 09/28/18 08:01 98.5 64 20 136/73 (94) Intake and Output 09/28/18 07:02 Intake Total 3253 ml Output Total 1975 ml Balance 1278 ml Intake Oral 460 ml IV Total 2793 ml Output Urine Total 1975 ml # Bowel Movements 2 General Appearance: Alert, Awake, No Acute Distress Neuro: Other (Short term memory is poor.) Eyes: PERRLA Cardiovascular: Regular Rate and Rhythm Respiratory: Clear to Auscultation GI: Soft and Non-Tender Extremities: Other (L lower leg with some edema. Chronic venous stasis changes noted distally. There is redness and increased warmth of the anterior allen. The distal foot has some wraps placed by wound care. No drainage is visible. ) Integumentary: Other (See above.) Psych: Other (The patient seems reserved. Memory is poor.) Result Diagram: 09/27/1853009/27/18530 Assessment and Plan Problems: (1) Sepsis Status: Acute Assessment & Plan: He presented with fever, confusion, diarrhea, and weakness a few hours prior to coming to the ER. It now appears to be secondary to cellulitis of the toe/leg. His fever, WBC, and lactate have all improved. An echocardiogram report shows an EF of 50-55% without noted wall motion abnormalities. . Repeat Blood cultures were ordered for 09/27, but the patient refused. Will order one BC with am lab tomorrow to see if he will comply with one blood draw. (2) Cellulitis of toe Assessment & Plan: He was found to have ulceration of the right 2nd toe and erythema up the leg. This has improved with ceftriaxone and vancomycin. His cultures have grown a Streptococcus species. The vancomycin is now stopped. An x-ray of the toe shows no evidence of osteomyelitis. (3) Non-STEMI (non-ST elevated myocardial infarction) Status: Acute Assessment & Plan: He did develop an elevated troponin, but no ST elevation. His troponin has been trending back down. He did have some chest pain this am and a repeat troponin showed significant improvement. EKG showed no ischemic changes. An echocardiogram shows EF of 50-55% without noted wall motion abnormalities. He was on full dose Lovenox, but this has now been stopped. He has been started on aspirin and a beta antolin. He had been on a baby ASA and a beta antolin (metoprolol 12.5mg bid) in the past but this was stopped due to bradycardia by his PCP. Per Dr. Pendleton's notes, his HR ranged from 40-70. Will monitor closely. (4) Altered mental status Status: Acute Assessment & Plan: Resolved. (5) T2DM (type 2 diabetes mellitus) Status: Chronic Assessment & Plan: He is not on outpatient medication. He is on sliding scale level #2, but has not required dosing. Will decrease glucose checks to bid. (6) Laceration Status: Acute Assessment & Plan: Multiple very small lacerations on feet/toes from broken glass on floor. Wound care will be seeing. (7) Abnormal bone radiograph Status: Chronic Assessment & Plan: Scattered areas on lucency seen diffusely in osseous struc tures on CT. Metastatic disease or myeloma cannot be excluded and might need to be worked up if clinically indicated when above issues resolved. (8) CKD (chronic kidney disease) stage 3, GFR 30-59 ml/min Status: Chronic Assessment & Plan: His most recent creatinine on 09/27 was 1.1. Time Spent on Plan of Care: < 30 min Exam Sepsis Risk: No Definite Risk MICHELE YARBROUGH MD Sep 28, 2018 10:40
--- NOTE | 2018-09-28 11:46 | Medical Nutrition Therapy ---
Nutrition Anthropometrics Height (Inches): 71 (from prevous admission) Weight (Pounds): 187 Weight (Calculated Kilograms): 84.822 BMI: 26.1 Twin Nutrition Score: Probably Inadequate Twin Nutrition Risk Score: 14 Dietary Referral Nutrition Risk Factors: Nutrition Risk Comment: Physical Findings Physical Appearance: Overweight BMI 25-29 Skin Appearance Skin Appearance: Edema Edema Location Modifier: Both Edema Location: Ankle Type of Edema: Degree of Edema: 1+ Gastrointestinal Symptoms GI Symtoms: Hemorrhoids Tube Present: Bowel Sounds: Recent Bowel Pattern: Stool Characteristics: Nutritional Diagnosis Nutritional Risk Acuity 2: Sepsis Nutritional Risk Acuity 4: Modified Diet Past Medical History: DMII Nutritional Acuity: 2-Moderate Nutrition Diagnosis: Increased Nutrient Needs Nutrition Etiology: Physiological Causes Nutrition Problem/Etiology/Sym: r/t dx sepsis AEB alb 3 Energy Requirement: 2000 (MSJ) Protein Requirement: 84 (1gm/kg) Fluid Requirement: 2000 (1ml/kcal) Diet Type: Diabetic Nutrition Intervention: Cont diet as ordered, Encourage intake Additional Diet Restrictions: OFFER SF NUTR SUPPLMENT Nutrition Monitoring & Eval Nutrition Goals: Eat 75-100% Meal, Drink > 2 liters/day Nutrition Follow-Up: Fair Intake RD Patient Assessment Time: [address] Assessment Type: RD Re-Assessment Patient Nutrition Acuity: 2-Moderate Follow Up Date: Oct 03, 2018 Nutritional Comment: 09/25 Pt admitted with dx sepsis. pt on diabetic diet but no intake reported at this time. Alb 3.8, BUN elevated at 25, creatinine elevated at 1.3, GFR 52, RBG ranging 86-195. Pt is having N/V. Will cont to monitor and encourage intake. LAVINIA 09/28 Pt cont on diabetic diet. Intake improved after first day to average of 77%. RBG is WR. Alb low at 2.3. Will offer nutritional supplement to increase protein intake. Will cont to monitor and encourage intake. SB RICHARDSON Sep 28, 2018 11:46
[2018-09-28 12:25] VITALS: BP 168/74
[2018-09-28 15:12] VITALS: BP 156/75
[2018-09-28 19:37] VITALS: BP 152/73
[2018-09-28] MEDS: SERTRALINE HCL 50 MG TAB PO SCH (20:24)
[2018-09-28 23:19] VITALS: BP 126/61
[2018-09-29 01:28] VITALS: BP 164/83
[2018-09-29 05:30] VITALS: BP 147/63
[2018-09-29] MEDS: cefTRIAXone 2 GM VIAL IVPB SCH (05:38)
[2018-09-29 06:16] LABS: PLATELET COUNT, AUTOMATED 112 K/uL (150-450)
[2018-09-29] MEDS: ASPIRIN 325 MG ENTERIC COATED PO SCH (09:28)
[2018-09-29] MEDS: METOPROLOL TART 50 MG TAB PO SCH ×2 (09:28→21:10)
--- NOTE | 2018-09-29 11:03 | Hospitalist Progress Note ---
Subjective Progress Notes Subjective He reports doing well. No fever. No CP. NO SOB. Physical Exam Vital Signs Date Time Temp Pulse Resp B/P (MAP) Pulse Ox O2 Delivery O2 Flow Rate FiO2 09/29/18 08:00 92 Nasal Cannula 1.0 09/29/18 05:30 97.6 63 20 147/63 (91) Intake and Output 09/29/18 07:02 Intake Total 2072 ml Output Total 395 ml Balance 1677 ml Intake Oral 840 ml IV Total 1232 ml Output Urine Total 395 ml # Voids 7 # Bowel Movements 4 General Appearance: Alert, Awake Cardiovascular: Other (Regular with distant tones) Respiratory: Clear to Auscultation GI: Soft and Non-Tender (BS present) Extremities: Warm, Perfused Integumentary: Generalized Fragile Skin, Other (Right anterior tibial area with erythema extending from just below knee to proximal foot/right second toe dressed - borders will be marked ) Result Diagram: 09/29/18 0600 09/29/18 0600 Assessment and Plan Problems: (1) Sepsis Status: Acute Assessment & Plan: He presented with fever, confusion, diarrhea, and weakness a few hours prior to coming to the ER. It now appears to be secondary to cellulitis of the toe/leg. His fever, WBC, and lactate have all improved. An echocardiogram report shows an EF of 50-55% without noted wall motion abnormalities. Repeat blood cultures were ordered for 09/27/18, but the patient refused. We were able to get one blood culture with lab this morning as he will allow one blood draw a day. (2) Cellulitis of toe Status: Acute Assessment & Plan: He was found to have ulceration of the right 2nd toe and erythema involving the leg. This has improved with IV ceftriaxone and vancomycin. His cultures have grown a Streptococcus species. The vancomycin farias s now been stopped. An x-ray of the toe shows no evidence of osteomyelitis. (3) Non-STEMI (non-ST elevated myocardial infarction) Status: Acute Assessment & Plan: He did develop an elevated troponin, but no ST elevation. His troponin has been trending back down. EKG showed no ischemic changes. An echocardiogram shows EF of 50-55% without noted wall motion abnormalities. He was on full dose Lovenox, but this has now been stopped. He has been started on aspirin and a beta antolin. He had been on a baby ASA and a beta antolin ( metoprolol 12.5mg bid) in the past but this was stopped due to bradycardia by his PCP. Per Dr. Pendleton's notes, his HR ranged from 40-70. Will monitor closely. (4) Altered mental status Status: Acute Assessment & Plan: Resolved. (5) T2DM (type 2 diabetes mellitus) Status: Chronic Assessment & Plan: He is not on any outpatient medication. He is on sliding scale level #2, but has not required dosing. Will stop glucose checks and monitor on metabolic panel periodically. (6) Laceration Status: Acute Assessment & Plan: Multiple very small lacerations on feet/toes from broken glass on floor. Wound care seeing. (7) Abnormal bone radiograph Status: Chronic Assessment & Plan: Scattered areas on lucency seen diffusely in osseous structu res on CT. Metastatic disease or myeloma cannot be excluded and might need to be worked up if clinically indicated when above issues resolved. (8) CKD (chronic kidney disease) stage 3, GFR 30-59 ml/min Status: Chronic Assessment & Plan: Creatinine today is 1.0. Exam Sepsis Risk: No Definite Risk BENI YARBROUGH MD Sep 29, 2018 11:02
[2018-09-29 13:40] VITALS: BP 141/67
--- NOTE | 2018-09-29 14:36 | NUR ---
Physical Therapy Impression PT/OT co-eval completed for pt safety. Pt noted to be attempting to get out of bed around the bed rail upon PT arrival. Bed alarm had not be turned on. PT assisted pt to sit safely at the edge of bed while OT obtained gait belt, O2 and W/C to follow. Pt requires cues to use FWW safely and declined to ambulate further after toileting, aside from returning "to bed". O2 tubing was on pt, however, had been turned off at wall, possibly for a room air trial. Pt's sats were at 83%. Supplemental O2 was turned on at 1 L/min and pt left with this running and maintaining SpO2 at 93% at end of therapy session. Non-excisional debridement completed with the use of tweezers to a depth of subcutaneous tissue in order to remove periwound callus and non-viable tissue. Wound cleansed with sterile saline and fresh cover of bordered gauze dressing applied. Nursing to change as indicated if dressing becomes dislodged, contaminated or overly saturated. Physical Therapy Goals 1. Pt to be Min/CGA for bed mobility and sup<>Sit transfers 2. Pt to be Min/CGA with FWW for sit to/from stand 3. Pt to tolerate FWW and utilize more safely with SBA/CGA for ambulation x 100' Patient's Goals
--- NOTE | 2018-09-29 14:40 | NUR ---
Occupational Therapy Impression SBA bed mobility/in out. CGA ambulation in room with RW. CGA provided for safety due to impulsivity. Min A toilet transfer for safety and Max A adithya-care for thoroughness. Pt requesting return to bed. SpO2 >88% on room air. Recommend return to [facility] when medically appropriate. Occupational Therapy Goals 1) Pt will be SBA toilet task. 2) Pt will be SBA LB dressing. Patient's Goal
[2018-09-29 15:55] VITALS: BP 156/78
[2018-09-29 19:25] VITALS: BP 168/77
[2018-09-29] MEDS: SERTRALINE HCL 50 MG TAB PO SCH (21:10)
--- NOTE | 2018-09-29 22:14 | NUR ---
REPORT GIVEN TO MAYA PAIZ
[2018-09-29 23:30] VITALS: BP 166/59
[2018-09-30 03:00] VITALS: BP 141/71
[2018-09-30] MEDS: cefTRIAXone 2 GM VIAL IVPB SCH (05:13)
[2018-09-30 05:40] LABS: PLATELET COUNT, AUTOMATED 123 K/uL (150-450)
[2018-09-30 06:55] VITALS: BP 158/75
[2018-09-30] MEDS: ASPIRIN 325 MG ENTERIC COATED PO SCH (08:25)
[2018-09-30] MEDS: METOPROLOL TART 50 MG TAB PO SCH (08:25)
--- NOTE | 2018-09-30 08:35 | NUR ---
Physical Therapy Impression Patient was CGA for bed mobility and SBA for STS transfer. Patient instructed in ambulation with FWW ~150 feet with CGA and one seated rest break and moderate cues to stay close to walker and with w/c follow for safety. Patient has forward trunk lean with gait. Patient was unsafe when getting back to his bed as he pushed his walker off to side and then reached for bed. Patient left in bed with oxygen on and rails up and nursing in room. Physical Therapy Goals 1. Pt to be Min/CGA for bed mobility and sup<>Sit transfers 2. Pt to be Min/CGA with FWW for sit to/from stand 3. Pt to tolerate FWW and utilize more safely with SBA/CGA for ambulation x 100' Patient's Goals
[2018-09-30] MEDS ORDERED: AMOX500T10 PO (10:36)
--- NOTE | 2018-09-30 10:43 | Hospitalist Depart ---
Discharge Summary Reason for Hosp/Final Diag: (1) Sepsis Status: Acute Hospital Course & Plan: He presented with fever, confusion, diarrhea, and weakness a few hours prior to coming to the ER. Secondary to cellulitis of the toe/leg. His fever, WBC, and lactate have all improved. An echocardiogram report shows an EF of 50-55% without noted wall motion abnormalities. Repeat blood cultures were drawn 07.08 and are negative after 24 hours. Converted from ceftriaxone to amoxicillin PO to complete 14 days therapy. (2) Cellulitis of toe Status: Acute Hospital Course & Plan: He was found to have ulceration of the right 2nd toe and erythema involving the leg. This has improved with IV ceftriaxone and vancomycin. His cultures have grown a Streptococcus species. An x-ray of the toe shows no evidence of osteomyelitis. Converted to PO amoxicillin based on culture result. (3) Non-STEMI (non-ST elevated myocardial infarction) Status: Acute Hospital Course & Plan: He did develop an elevated troponin, but no ST elevation. His troponin has been trending back down. EKG showed no ischemic changes. An echocardiogram shows EF of 50-55% without noted wall motion abnormalities. He was on full dose Lovenox, but this has now been stopped. He has been started on aspirin and a beta antolin. He had been on a baby ASA and a beta antolin (metoprolol 12.5mg bid) in the past but this was stopped due to bradycardia by his PCP. Per Dr. Deluna's notes, his HR ranged from 40-70. Consider outpatient nuclear medicine testing to further evaluate for CAD. (4) Altered mental status Status: Acute Hospital Course & Plan: Resolved. (5) T2DM (type 2 diabetes mellitus) Status: Chronic Hospital Course & Plan: He is not on any outpatient medication. (6) Laceration Status: Acute Hospital Course & Plan: Multiple very small lacerations on feet/toes from broken glass on floor. Wound care seeing. (7) Abnormal bone radiograph Status: Chronic Hospital Course & Plan: Scattered areas on lucency seen diffusely in osseous structures on CT. Metastatic disease or myeloma cannot be excluded and might need to be worked up if clinically indicated when above issues resolved. (8) CKD (chronic kidney disease) stage 3, GFR 30-59 ml/min Status: Chronic Hospital Course & Plan: At baseline. Departure Weight (Pounds): 187 Result Diagram: 09/30/1852409/30/18524 Condition: Improved Discharge: Home Health, Assisted Living Discharge Instructions Home Meds Active Scripts Amoxicillin 500 Mg Tab (AMOXICILLIN 500 MG TAB) 500 Mg Tablet, 1 TAB PO Q8H for 8 Days, #24 TAB Prov:CARINA JAIME DO 09/30/18 Lisinopril (LISINOPRIL) 10 Mg Tablet, 0.5 TAB PO QDAY, #90 TAB 4 Refills Prov:HAROLDO DELUNA MD 03/03/18 Atorvastatin Calcium (ATORVASTATIN CALCIUM) 10 Mg Tablet, 1 TAB PO QODAY for 90 Days, #45 TAB 4 Refills Prov:HAROLDO DELUNA MD 01/22/18 Nitroglycerin (NITROGLYCERIN) 0.4 Mg Tab.subl, 0.4 MG SL Q5MIN PRN for chest pain for 90 Days, #10 TAB Prov:HAROLDO DELUNA MD 09/03/17 Cholecalciferol (Vitamin D3) (VITAMIN D-3) 2,000 Unit Capsule, 2000 UNIT PO QDAY for 90 Days, #90 CAPSULE 4 Refills Prov:HAROLDO DELUNA MD 09/03/17 Reported Medications Calcium Carbonate (ANTACID ULTRA STRENGTH) 400 Mg Tab.chew, 750 MG PO PRN for DYSPEPSIA, TAB.CHEW Take 2 tablets by mouth every 2 hrs PRN heartburn or distress. 09/25/18 Sertraline Hcl (SERTRALINE HCL) 25 Mg Tablet, 1 TAB PO QHS, TAB 09/25/18 Dextran 70/Hypromellose (ARTIFICIAL TEARS) 1 Each Droperette, 1 GTT OP PRN 05/21/18 Acetaminophen (TYLENOL) 325 Mg Tablet, 1-2 TAB PO Q4H PRN for PAIN/TEMP OVER 100.4, TAB 03/03/18 Aspirin (ASPIR 81) 81 Mg Tablet.dr, 1 TAB PO QDAY, TAB 03/08/17 Polyethylene Glycol 3350 (MIRALAX) Unknown Strength Powd.pack, 17 GM PO QDAY, PKT 10/03/16 Discontinued Reported Medications Calcium Carbonate (ANTACID) 300 Mg Tab.chew, 750 MG PO Q2H PRN for HEARTBURN, TAB.CHEW 09/25/18 Discontinued Scripts Sertraline Hcl (SERTRALINE HCL) 25 Mg Tablet, 1 TAB PO QDAY for 90 Days, #90 TAB 4 Refills Prov:HAROLDO DELUNA MD 10/28/17 Diet: Diabetic Activity: As Tolerated, With Walker Special Instructions: Begin amoxicillin 10.19 am. Copies to: HAROLDO DELUNA MD ; Venous Thromboembolism Antithrombotics Is Pt On Any Antithrombotics?: No CARINA JAIME DO Sep 30, 2018 10:43
[2018-09-30] MEDS ORDERED: METO25TA93 PO (10:58)
--- NOTE | 2018-09-30 11:27 | NUR ---
OCCUPATIONAL THERAPY Dressing Assistance: CGA due to impulsivity Dressing Aid Required: None Bathing Assistance: N/T with OT Home Assessment: Not Completed Feeding Assistance: Independent Feeding Specialized Equipment: None Toilet Use: Increased assist for thoroughness Verbalizes Needs: Yes Understands Precautions: Yes Cooperative: Yes Family Teaching: No Occupational Therapy Comment:
== END 2018-09-30 14:05 | disposition home or self-care (01) | DRG 871 ==
LOC: ER 04:06 → MED 06:06
PROVIDERS: ADMIT Internal Medicine; ATTEND Internal Medicine
DX: A41.9 Sepsis, unspecified organism (principal); I21.4 Non-ST elevation (NSTEMI) myocardial infarction; C79.51 Secondary malignant neoplasm of bone; C90.00 Multiple myeloma not having achieved remission; L03.115 Cellulitis of right lower limb; L03.031 Cellulitis of right toe; R41.82 Altered mental status, unspecified; N18.3 Chronic kidney disease, stage 3 (moderate); R40.2352 Coma scale, best motor response, localizes pain, at arrival to emergency department; R40.2142 Coma scale, eyes open, spontaneous, at arrival to emergency department; R40.2242 Coma scale, best verbal response, confused conversation, at arrival to emergency department; I12.9 Hypertensive chronic kidney disease with stage 1 through stage 4 chronic kidney disease, or unspecified chronic kidney disease; I25.10 Atherosclerotic heart disease of native coronary artery without angina pectoris; E11.22 Type 2 diabetes mellitus with diabetic chronic kidney disease; S91.319A Laceration without foreign body, unspecified foot, initial encounter; B95.4 Other streptococcus as the cause of diseases classified elsewhere
CPT/HCPCS: 36415; 36416; 70450; 71045; 71260; 72125; 74177; 80202; 81001; 82040; 82247; 82310; 82374; 82435; 82550; 82565; 82803; 82947; 82948; 83605; 83630; 83690; 84075; 84132; 84155; 84295; 84450; 84460; 84484; 84520; 85025; 85610; 85730; 87040; 87045; 87077; 87186; 87493; 90715; 93005; 93306; 96365; 96366; 96367; 97161; 97166; 99285; A4340; A4353; J0131; J0456; J0696; J1650; J2270; J2543; J3370; J7030; J7040; J7050; J7120; Q9967; S0119

== ENCOUNTER → 2018-09-25 | Outpatient (CLI) | payer MEDICARE, OTHER ==
[2013-09-18 10:38] VITALS: BMI 27.9
[~2018-09-25] MED LIST changes: +AMOX500T10 PO; +[UNRECOGNIZED DRUG - CODE] PO
== END ==
LOC: AMB 03:20
PROVIDERS: ATTEND Nurse Practitioner
DX: R41.82 Altered mental status, unspecified (principal); S80.212A Abrasion, left knee, initial encounter; S80.211A Abrasion, right knee, initial encounter; R11.0 Nausea; W06.XXXA Fall from bed, initial encounter
CPT/HCPCS: A0425; A0429

== ENCOUNTER → 2018-10-21 | Outpatient (CLI) | payer MEDICARE, OTHER ==
[2013-09-18 10:38] VITALS: BMI 27.9
[~2018-10-21] MED LIST changes: +ACET-2146 PO; +AMOX500T10 PO; +COL30T TP; +TRAM-420 PO; +[UNRECOGNIZED DRUG - CODE] PO
== END ==
LOC: ZZSPRING 02:03
PROVIDERS: ATTEND Family Medicine
DX: L03.90 Cellulitis, unspecified (principal)
CPT/HCPCS: 36415; 82040; 82247; 82310; 82374; 82435; 82565; 82947; 84075; 84132; 84155; 84295; 84450; 84460; 84520; 85027